=== PATIENT | female | born 1985 | race Caucasian/White ===

== ENCOUNTER 2020-01-04 07:59 | Outpatient (REF) | payer OTHER, SELFPAY ==
[2020-01-04 12:41] LABS: Chol HDL Ratio 4.35 mg/dL (0.0-4.40); Cholesterol 200 mg/dL (0-200); Glucose 101 mg/dL (65-115); HDL Cholesterol 46 mg/dL (60-100); LDL Cholesterol Calculated 118 mg/dL (50-129); LDL HDL Ratio 2.57 RATIO (0.00-3.22); Triglycerides 178 mg/dL (0-150)
[2020-01-04 13:20] LABS: Estmated Average Glucose 126
== END 2020-01-04 08:00 | disposition home or self-care (01) ==
LOC: LAB 07:59
PROVIDERS: Family Provider Family Medicine; PCP Family Medicine; Visit Provider Dermatology
DX: Z01.89 Encounter for other specified special examinations (principal)
CPT/HCPCS: 80061; 82947; 83036

== ENCOUNTER → 2020-03-12 15:54 | Outpatient (BNVA) | payer OTHER, SELFPAY | PROVIDERS: Family Provider Family Medicine; PCP Family Medicine; Referring Provider Surgery; Visit Provider Nurse Practitioner Women's Health | DX: Z01.419 Encounter for gynecological examination (general) (routine) without abnormal findings (principal); L68.0 Hirsutism; Z11.3 Encounter for screening for infections with a predominantly sexual mode of transmission; R10.30 Lower abdominal pain, unspecified | CPT/HCPCS: 87491; 87591; 87661; 88175 ==

== ENCOUNTER → 2020-11-23 16:27 | Outpatient (BNVA) | payer OTHER, SELFPAY | PROVIDERS: PCP Family Medicine; Visit Provider Nurse Practitioner Family | DX: M25.571 Pain in right ankle and joints of right foot (principal) | CPT/HCPCS: 73610 ==

== ENCOUNTER 2021-02-15 19:08 | Emergency (ER) | payer OTHER, SELFPAY ==
[2021-02-15 19:12] VITALS: BP 127/84; PULSE 133; RESP 22; TEMP 37.9; O2SAT 94; BMI 40.3
--- NOTE | 2021-02-15 21:22 | ED_ITS ---
HPI - Fever General: Chief Complaint: Fever Stated Complaint: SOB /Weakness/fever/Sore Throat Time Seen by Provider: 02/15/21 21:21 History of Present Illness: HPI Narrative: Patient is a 35-year-old female comes to the ED with fever and upper respiratory symptoms. Patient says symptoms started today. She says she woke up with nasal congestion and drainage and a sinus headache. She also complaining of a sore throat. Patient says she is taken to 1000 mg doses of Tylenol today. Her last dose of Tylenol was at 6 PM tonight. She is also complaining of having some right flank pain that started today as well. She says the pain comes in her lower back/right flank comes and goes. She denies any history of flank pain or kidney stones. Patient also says she took some Mucinex to help with her nasal congestion today as well. Denies any chest pain, emesis, bladder or bowel symptoms. She does endorse some nausea. Denies any known COVID-19 contacts. Associated symptoms: Reports flank pain (right flank pain), nasal congestion and nausea; Deny abdominal pain, chills, chest pain, diarrhea, dysuria, headache(s) or vomiting Review of Systems Const: Reports: fever(s); Denies: chills or fatigue Eyes: Denies: change in vision or eye discomfort ENMT: Reports: throat pain, nasal discharge and nasal congestion; Denies: odynophagia Card: Denies: chest pain, palpitations, edema, swelling of feet/ankles, dyspnea on exertion or orthopnea Resp: Denies: dyspnea, productive cough or non-productive cough GI: Reports: nausea; Denies: abdominal pain, vomiting, diarrhea, constipation or hematochezia : Reports: flank pain (right flank pain); Denies: dysuria or hematuria Musc: Denies: neck pain, back pain or extremity swelling Skin/Breast: Denies: rash or new lesions Neuro: Denies: headache(s), numbness in extremities or weakness in extremities PFSH ED PFSH: Medical History Anxiety Arthritis delivery delivered 2005 Patel Diabetes pre-diabetes GERD (gastroesophageal reflux disease) Hypertension Surgical History H/O section (~2005) 2006 Patel History of salpingectomy (~2018) Bilateral--- sterilization Hx of colonoscopy 2010 polyps removed Family History Grandmother Diabetes Chronic kidney disease (CKD) Father Diabetes Hypertension Bleeding disorder Mother Lung disease Denies family history of Cancer Stroke Social History Smoking and tobacco status: former smoker Alcohol intake: never Physical Exam Const: COMMON NORMALS: no acute distress, patient oriented x3, healthy appearing and alert GENERAL APPEARANCE: cooperative and comfortable NUTRITIONAL APPEARANCE: obese HENMT: COMMON NORMALS: normocephalic HEAD & SCALP: normocephalic FACE & SINUS: no sinus tenderness MOUTH: Normal oral and palatal mucosa present THROAT: posterior oropharynx normal, uvula midline and abnormal tonsil right erythema, exudates and hypertrophy 3+ Eye: COMMON NORMALS: Equal, round and reactive pupils present PUPIL: Yes Equal, round and reactive pupils present Neck/C-Spine: COMMON NORMALS: supple GENERAL: Yes normal visual inspection Resp: COMMON NORMALS: normal respiratory effort, No retractions, No use of accessory muscles and clear to auscultation bilaterally AUSCULTATION: clear to auscultation bilaterally Cardio: COMMON NORMALS: regular rate, regular rhythm, S1 normal heart sound present, S2 normal heart sound present, No gallops present (Cardio), No clicks present (Cardio), No murmurs present (Cardio) and Peripheral pulses 2+ throughout RATE: regular rate RHYTHM: regular rhythm HEART SOUNDS: S1 normal heart sound present and S2 normal heart sound present PERIPHERAL PULSES: Peripheral pulses 2+ throughout GI: COMMON NORMALS: Normal to inspection, nondistended, normoactive bowel sounds present, Soft to palpation, non-tender and no masses PALPATION: Yes Soft to palpation : COMMON NORMALS: Yes no CVA tenderness BLADDER/KIDNEY EXAM: Yes no CVA tenderness Back/Pelvis: COMMON NORMALS: no CVA tenderness Extremity: COMMON NORMALS: normal to inspection Neuro: COMMON NORMALS: patient oriented x3 and moves all extremities SENSORIUM/ORIENTATION: Yes alert Skin: GENERAL SKIN EXAM: dry skin Course Vital Signs: Vital signs: Vital Signs Temperature 99.4 F 02/15/21 23:39 Pulse Rate 112 H 02/15/21 23:39 Respiratory Rate 17 02/15/21 23:39 Blood Pressure 120/87 02/15/21 23:39 Pulse Oximetry 95 02/15/21 23:39 MDM - Fever MDM Narrative: Medical decision making narrative: Patient is a 35-year-old female who comes to the ED with fever and upper respiratory symptoms and right flank pain. Exam shows a healthy patient in no acute distress or pain. Lungs are clear to auscultation bilaterally. CBC, CMP and UA were unremarkable. Chest x-ray shows no acute findings. CT of the abdomen showed no acute findings or kidney stones. Influenza negative, Covid negative and strep negative. Patient received IV fluids, Zofran and Tylenol and symptoms improved. Patient diagnosed with upper respiratory infection likely viral. She was told to follow-up with her PCP in 7 to 10 days for reevaluation. Return to ED precautions given. Patient understood and agree with plan. Lab Data: Attestation: I reviewed the patient's lab results. Labs: Lab Results 02/15/21 02/15/21 02/15/21 Range/Units 21:43 21:43 21:43 WBC 10.0 (4.0-10.0) 10^3/ uL RBC 4.95 (4.1-5.3) 10^6/u L Hgb 13.7 (11.5-15.3) g/dL Hct 41.2 (37.0-47.0) % MCV 83.2 (81-99) fL MCH 27.7 L (28.0-34.0) pg MCHC 33.3 (30.0-36.0) g/dL RDW 12.6 (12.1-15.1) % Plt Count 267 (130-400) 10^3/c mm MPV 8.4 (7.4-10.4) fL Neut % (Auto) 80.5 % Lymph % (Auto) 13.6 % Hale % (Auto) 5.0 % Eos % (Auto) 0.3 % Baso % (Auto) 0.3 % Neut # (Auto) 8.03 H (1.8-7.7) 10^3/u L Lymph # (Auto) 1.4 (0.8-4.8) 10^3/u L Hale # (Auto) 0.5 (0.2-0.9) 10^3/u L Eos # (Auto) 0.0 (0.0-0.8) 10^3/u L Baso # (Auto) 0.0 (0.0-0.1) 10^3/u L Nucleated RBC % (a uto) 0 % Nucleated RBCs # 0.0 /100WBC Sodium 134 L (136-145) mmol/L Potassium 3.6 (3.5-5.1) mmol/L Chloride 98 (98-107) mmol/L Carbon Dioxide 24 (22-29) mmol/L Anion Gap 15.6 (5-19) BUN 11 (6-20) mg/dL Creatinine 0.6 (0.5-0.9) mg/dL GFR Calculation 113.8 (90-130) mL/min Glucose 106 (65-115) mg/dL Calculated Osmolal ity 278 L (285-295) mOsm/k g Calcium 8.8 (8.5-10.5) mg/dL Total Bilirubin 0.5 (0.15-1.2) mg/dL AST 16 (0-32) U/L ALT 23 (0-33) U/L Alkaline Phosphata se 66 (35-105) IU/L Total Protein 7.1 (6.6-8.7) g/dL Albumin 4.1 (3.5-5.2) g/dL Globulin 3.0 (1.3-4.6) g/dL HCG, Qual Negative (Negative) Urine Color (Yellow) Urine Appearance (CLEAR) Urine pH (5-7) Ur Specific Gravit y (1.005-1.030) Urine Protein (Negative) Urine Glucose (UA) (Normal) Urine Ketones (Negative) Urine Blood (Negative) Urine Nitrate (Negative) Urine Bilirubin (Negative) Urine Urobilinogen (Negative) mg/dL Ur Leukocyte Taisha ase (Negative) Urine RBC (0-2) /hpf Urine WBC (0-5) /hpf Ur Squamous Epith Cells (0-5) /hpf Amorphous Sediment Urine Bacteria (NONE) /hpf Influenza Type A A g (Negative) Influenza Type B A g (Negative) SARS-CoV-2 Ag (Rap id) (Negative) Group A Strep Rapi d (Negative) 02/15/21 02/15/21 02/15/21 Range/Units 22:19 22:19 22:19 WBC (4.0-10.0) 10^3/ uL RBC (4.1-5.3) 10^6/u L Hgb (11.5-15.3) g/dL Hct (37.0-47.0) % MCV (81-99) fL MCH (28.0-34.0) pg MCHC (30.0-36.0) g/dL RDW (12.1-15.1) % Plt Count (130-400) 10^3/c mm MPV (7.4-10.4) fL Neut % (Auto) % Lymph % (Auto) % Hale % (Auto) % Eos % (Auto) % Baso % (Auto) % Neut # (Auto) (1.8-7.7) 10^3/u L Lymph # (Auto) (0.8-4.8) 10^3/u L Hale # (Auto) (0.2-0.9) 10^3/u L Eos # (Auto) (0.0-0.8) 10^3/u L Baso # (Auto) (0.0-0.1) 10^3/u L Nucleated RBC % (a uto) % Nucleated RBCs # /100WBC Sodium (136-145) mmol/L Potassium (3.5-5.1) mmol/L Chloride (98-107) mmol/L Carbon Dioxide (22-29) mmol/L Anion Gap (5-19) BUN (6-20) mg/dL Creatinine (0.5-0.9) mg/dL GFR Calculation (90-130) mL/min Glucose (65-115) mg/dL Calculated Osmolal ity (285-295) mOsm/k g Calcium (8.5-10.5) mg/dL Total Bilirubin (0.15-1.2) mg/dL AST (0-32) U/L ALT (0-33) U/L Alkaline Phosphata se (35-105) IU/L Total Protein (6.6-8.7) g/dL Albumin (3.5-5.2) g/dL Globulin (1.3-4.6) g/dL HCG, Qual (Negative) Urine Color Colorless (Yellow) Urine Appearance Clear (CLEAR) Urine pH 5 (5-7) Ur Specific Gravit y 1.010 (1.005-1.030) Urine Protein Neg (Negative) Urine Glucose (UA) Norm (Normal) Urine Ketones Negative (Negative) Urine Blood Trace H (Negative) Urine Nitrate Negative (Negative) Urine Bilirubin Neg (Negative) Urine Urobilinogen Norm (Negative) mg/dL Ur Leukocyte Taisha ase Negative (Negative) Urine RBC 0-4 H (0-2) /hpf Urine WBC Rare (0-5) /hpf Ur Squamous Epith Cells 5-10 H (0-5) /hpf Amorphous Sediment Not Reportable Urine Bacteria Trace (NONE) /hpf Influenza Type A A g Negative (Negative) Influenza Type B A g Negative (Negative) SARS-CoV-2 Ag (Rap id) (Negative) Group A Strep Rapi d Negative (Negative) 02/15/21 Range/Units 22:19 WBC (4.0-10.0) 10^3/ uL RBC (4.1-5.3) 10^6/u L Hgb (11.5-15.3) g/dL Hct (37.0-47.0) % MCV (81-99) fL MCH (28.0-34.0) pg MCHC (30.0-36.0) g/dL RDW (12.1-15.1) % Plt Count (130-400) 10^3/c mm MPV (7.4-10.4) fL Neut % (Auto) % Lymph % (Auto) % Hale % (Auto) % Eos % (Auto) % Baso % (Auto) % Neut # (Auto) (1.8-7.7) 10^3/u L Lymph # (Auto) (0.8-4.8) 10^3/u L Hale # (Auto) (0.2-0.9) 10^3/u L Eos # (Auto) (0.0-0.8) 10^3/u L Baso # (Auto) (0.0-0.1) 10^3/u L Nucleated RBC % (a uto) % Nucleated RBCs # /100WBC Sodium (136-145) mmol/L Potassium (3.5-5.1) mmol/L Chloride (98-107) mmol/L Carbon Dioxide (22-29) mmol/L Anion Gap (5-19) BUN (6-20) mg/dL Creatinine (0.5-0.9) mg/dL GFR Calculation (90-130) mL/min Glucose (65-115) mg/dL Calculated Osmolal ity (285-295) mOsm/k g Calcium (8.5-10.5) mg/dL Total Bilirubin (0.15-1.2) mg/dL AST (0-32) U/L ALT (0-33) U/L Alkaline Phosphata se (35-105) IU/L Total Protein (6.6-8.7) g/dL Albumin (3.5-5.2) g/dL Globulin (1.3-4.6) g/dL HCG, Qual (Negative) Urine Color (Yellow) Urine Appearance (CLEAR) Urine pH (5-7) Ur Specific Gravit y (1.005-1.030) Urine Protein (Negative) Urine Glucose (UA) (Normal) Urine Ketones (Negative) Urine Blood (Negative) Urine Nitrate (Negative) Urine Bilirubin (Negative) Urine Urobilinogen (Negative) mg/dL Ur Leukocyte Taisha ase (Negative) Urine RBC (0-2) /hpf Urine WBC (0-5) /hpf Ur Squamous Epith Cells (0-5) /hpf Amorphous Sediment Urine Bacteria (NONE) /hpf Influenza Type A A g (Negative) Influenza Type B A g (Negative) SARS-CoV-2 Ag (Rap id) Negative (Negative) Group A Strep Rapi d (Negative) Imaging Data^: CXR: Attestation: I personally reviewed and interpreted this imaging study as follows: My impression: Chest x-ray?no acute findings. CT Abd/Pel: Attestation: I personally reviewed and interpreted this imaging study as follows: Radiologist's impression: [facility] [address] [place] [address] CT Scan Report Signed Patient: Montserrat Odom Unit #: [id number] : 1985 Age/Sex: 35 / F ADM Date: 02/15/21 Loc: ER Room/Bed: Attending Dr: Ordering Provider/Ordering MD: Miguel Perez Date of Service: 02/15/21 Procedure(s): CT kidney stone 74970 Accession Number(s): [id number] Report Number: [id number] PROCEDURE INFORMATION: Exam: CT Abdomen And Pelvis Without Contrast Exam date and time: 02/15/2021 9:51 PM Age: 35 years old Clinical indication: Abdominal pain; Right; Prior surgery; Surgery date: 6+ months; Surgery type: B-salpingectomy; Patient HX: C/O intermittent R flank pain; Additional info: Right flank pain TECHNIQUE: Imaging protocol: Computed tomography of the abdomen and pelvis without contrast. Total images: 373 Radiation optimization: All CT scans at this facility use at least one of these dose optimization techniques: automated exposure control; mA and/or kV adjustment per patient size (includes targeted exams where dose is matched to clinical indication); or iterative reconstruction. COMPARISON: CT abdomen pelvis w con* [id number] 07/21/2014 1:27 AM RADIATION DOSE METRICS: Total DLP (mGy-cm): 1973.23 FINDINGS: Lungs: Limited assessment of the lung bases fails to reveal evidence for active cardiopulmonary process. Liver: Marked advanced diffuse fatty infiltration of the liver with hepatomegaly. Gallbladder and bile ducts: Normal. No calcified stones. No ductal dilation. Pancreas: Pancreas unremarkable. No visible pancreatic ductal ectasia. Spleen: Splenomegaly. Adrenal glands: Right adrenal adenoma that measures 24 mm x 17 mm x 23 mm. Left adrenal gland unremarkable. Kidneys and ureters: No hydronephrosis or perinephric fluid. No visible nephrolithiasis or ureterolithiasis. Stomach and bowel: Assessment of the hollow viscus fails to reveal evidence of active or acute pathology. Nonobstructed bowel pattern. No visible acute diverticulitis. No visible adynamic or reactive ileus. Appendix: The appendix is visualized and appears noninflamed. Intraperitoneal space: No visible evidence of mesenteric lymphadenitis or active mesenteritis/panniculitis. No visible pneumoperitoneum or intraperitoneal ascites. Vasculature: The abdominal aorta is nonaneurysmal. Lymph nodes: No current visible evidence of active mesenteric or retroperitoneal lymphadenopathy. Urinary bladder: Unremarkable as visualized. Reproductive: Unremarkable as visualized. Bones/joints: No visible active or acute osseous pathology. Soft tissues: Unremarkable. Other findings: Marked obesity. CT/CT kidney stone [id number] IMPRESSION: 1. Currently no visible evidence of acute abdominal or pelvic pathologic process. 2. Right adrenal adenoma that measures 24 mm x 17 mm x 23 mm. COMMENTS: Consistent with the [place] [employer]'s Incidental Findings Committee white paper (J Am Johnna Radiol 2017): For any incidental adrenal lesion greater than 1 cm but less than 4 cm classified in this report as benign, likely benign, or containing fat (including classification as an adenoma or myelolipoma), no follow-up imaging is recommended per consensus recommendations based on imaging criteria. Further lab evaluation could be pursued if warranted based on clinical findings. Radiation Dose CTDIVOL = (mGy): DLP = 1973.23 (mGy-cm) Dictated By: Kashif Moctezuma Signed By: Kashif Moctezuma Signed Date/Time: 02/15/212224 DD/ 24 Discharge Plan Discharge Patient Disposition: Home Clinical Impression: Upper respiratory infection Qualifiers: URI type: unspecified viral URI Qualified Code(s): J06.9 - Acute upper respiratory infection, unspecified Condition: Stable Prescriptions: No Action lisinopril-hydrochlorothiazide 20-12.5 mg tablet 1 tab PO DAILY RF: 0 potassium chloride 10 mEq capsule, extended release 10 meq PO DAILY RF: 0 buspirone 15 mg tablet 15 mg PO BID RF: 0 hydrochlorothiazide 25 mg tablet 25 mg PO DAILY RF: 0 meloxicam 15 mg tablet 15 mg PO DAILY RF: 0 montelukast [Singulair] 10 mg tablet 10 mg PO DAILY RF: 0 magnesium 250 mg tablet 250 mg PO DAILY RF: 0 senna 8.6 mg capsule 17.2 mg PO DAILY PRNRF: 0 omeprazole 20 mg tablet,delayed release (DR/EC) 20 mg PO DAILY RF: 0 escitalopram oxalate [Lexapro] 10 mg tablet 10 mg PO DAILY RF: 0 hydroxyzine HCl 25 mg tablet 25 mg PO Q6H PRNRF: 0 norgestimate-ethinyl estradiol [Sprintec (28)] 0.25-35 mg-mcg tablet 1 tab PO QDAY Qty: 84 RF: 3 Discharge Orders: Discharge ED (Routine); Ordered 02/15/21 Ordered By: Miguel Perez Referrals: Bruce Euceda MD [Primary Care Provider] - Discharge Diet: Regular Discharge Activity: Resume usual activity Patient Instructions: Upper Respiratory Infection (ED), Viral Syndrome (ED) Activity Restrictions/Additional Instructions: Follow-up with medical provider as directed in 7 to 10 days for reevaluation. Continue taking all home medications as prescribed. Take Tylenol for any fevers or pain. Drink plenty of fluids and stay hydrated. Return to the ER or your medical provider if condition worsens. Please read and understand discharge instructions. If any questions, please ask. Stand Alone Forms: Work/School Release Coding Level of Care Code ED Insulation Cupola Operator for Asif Fwpawan Exam Comprehensive
--- NOTE | 2021-02-15 21:34 | XR_ITS ---
WS: [id number] PORTABLE CHEST HISTORY: fever, URI symptoms COMPARISON: 08/13/2016 Lungs are clear and well expanded. No pleural effusion or pneumothorax. Cardiac size: Normal. Mediastinum/Aorta: Normal mediastinum. No osseous abnormality seen. XR/XR chest 1V portable [id number] IMPRESSION: Unremarkable portable chest.
--- NOTE | 2021-02-15 21:34 | CTR_ITS ---
PROCEDURE INFORMATION: Exam: CT Abdomen And Pelvis Without Contrast Exam date and time: 02/15/2021 9:51 PM Age: 35 years old Clinical indication: Abdominal pain; Right; Prior surgery; Surgery date: 6+ months; Surgery type: B-salpingectomy; Patient HX: C/O intermittent R flank pain; Additional info: Right flank pain TECHNIQUE: Imaging protocol: Computed tomography of the abdomen and pelvis without contrast. Total images: 373 Radiation optimization: All CT scans at this facility use at least one of these dose optimization techniques: automated exposure control; mA and/or kV adjustment per patient size (includes targeted exams where dose is matched to clinical indication); or iterative reconstruction. COMPARISON: CT abdomen pelvis w con* [id number] 07/21/2014 1:27 AM RADIATION DOSE METRICS: Total DLP (mGy-cm): 1973.23 FINDINGS: Lungs: Limited assessment of the lung bases fails to reveal evidence for active cardiopulmonary process. Liver: Marked advanced diffuse fatty infiltration of the liver with hepatomegaly. Gallbladder and bile ducts: Normal. No calcified stones. No ductal dilation. Pancreas: Pancreas unremarkable. No visible pancreatic ductal ectasia. Spleen: Splenomegaly. Adrenal glands: Right adrenal adenoma that measures 24 mm x 17 mm x 23 mm. Left adrenal gland unremarkable. Kidneys and ureters: No hydronephrosis or perinephric fluid. No visible nephrolithiasis or ureterolithiasis. Stomach and bowel: Assessment of the hollow viscus fails to reveal evidence of active or acute pathology. Nonobstructed bowel pattern. No visible acute diverticulitis. No visible adynamic or reactive ileus. Appendix: The appendix is visualized and appears noninflamed. Intraperitoneal space: No visible evidence of mesenteric lymphadenitis or active mesenteritis/panniculitis. No visible pneumoperitoneum or intraperitoneal ascites. Vasculature: The abdominal aorta is nonaneurysmal. Lymph nodes: No current visible evidence of active mesenteric or retroperitoneal lymphadenopathy. Urinary bladder: Unremarkable as visualized. Reproductive: Unremarkable as visualized. Bones/joints: No visible active or acute osseous pathology. Soft tissues: Unremarkable. Other findings: Marked obesity. CT/CT kidney stone [id number] IMPRESSION: 1. Currently no visible evidence of acute abdominal or pelvic pathologic process. 2. Right adrenal adenoma that measures 24 mm x 17 mm x 23 mm. COMMENTS: Consistent with the [employer] [place] [employer]'s Incidental Findings Committee white paper (J Am Johnna Radiol 2017): For any incidental adrenal lesion greater than 1 cm but less than 4 cm classified in this report as benign, likely benign, or containing fat (including classification as an adenoma or myelolipoma), no follow-up imaging is recommended per consensus recommendations based on imaging criteria. Further lab evaluation could be pursued if warranted based on clinical findings. Radiation Dose CTDIVOL = (mGy): DLP = 1973.23 (mGy-cm)
[2021-02-15 21:48] VITALS: BP 120/87; PULSE 114; RESP 17; O2SAT 96
[2021-02-15 21:49] LABS: Basophils % 0.3 %; Eosinophils % 0.3 %; Hematocrit 41.2 % (37.0-47.0); Hemoglobin 13.7 g/dL (11.5-15.3); Lymphocytes # 1.4 10^3/uL (0.8-4.8); Lymphocytes % 13.6 %; Mean Corpuscular HGB Conc 33.3 g/dL (30.0-36.0); Mean Corpuscular Hemoglobin 27.7 pg (28.0-34.0); Mean Corpuscular Volume 83.2 fL (81-99); Mean Platelet Volume 8.4 fL (7.4-10.4); Monocytes # 0.5 10^3/uL (0.2-0.9); Neutrophils # 8.03 10^3/uL (1.8-7.7); Neutrophils % 80.5 %; Nucleated Red Blood Cells % 0 %; Platelet Count 267 10^3/cmm (130-400); Red Blood Count 4.95 10^6/uL (4.1-5.3); Red Cell Distribution Width 12.6 % (12.1-15.1)
[2021-02-15 22:00] VITALS: PULSE 102; RESP 17; O2SAT 96
[2021-02-15] MEDS: acetaminophen 500 mg Tablet PO (22:14)
[2021-02-15 22:15] LABS: HCG, Serum Qual Negative (Negative)
[2021-02-15 22:16] LABS: Alanine Aminotransferase 23 U/L (0-33); Albumin Level 4.1 g/dL (3.5-5.2); Alkaline Phosphatase 66 IU/L (35-105); Anion Gap 15.6 (5-19); Aspartate Amino Transferase 16 U/L (0-32); Blood Urea Nitrogen 11 mg/dL (6-20); Calcium 8.8 mg/dL (8.5-10.5); Carbon Dioxide 24 mmol/L (22-29); Chloride 98 mmol/L (98-107); Glomerular Filtration Rate 113.8 mL/min (90-130); Glucose 106 mg/dL (65-115); Osmolality Calculated 278 mOsm/kg (285-295); Potassium 3.6 mmol/L (3.5-5.1); Sodium 134 mmol/L (136-145); Total Bilirubin 0.5 mg/dL (0.15-1.2); Total Protein 7.1 g/dL (6.6-8.7)
[2021-02-15] MEDS: sodium chloride 0.9% 1,000 ML 999 ML IV (22:22)
[2021-02-15 22:58] LABS: Add Urine Culture? No; Bacteria Urine TRACE /hpf; Bilirubin Urine Neg (Negative); Blood Urine Trace (Negative); Glucose Urine UA Norm (Normal); Ketones Urine Negative (Negative); Leukocyte Esterase Urine Negative (Negative); Nitrate Urine Negative (Negative); Protein Urine Neg (Negative); RBC Urine 0-4 /hpf (0-2); Urine Appearance Clear (CLEAR); Urine Color Colorless (Yellow); Urobilinogen Urine Norm (Negative); WBC Urine RARE /hpf (0-5); pH Urine 5 (5-7)
[2021-02-15 23:02] LABS: Rapid Strep A Test Negative (Negative)
[2021-02-15 23:16] LABS: SARS Covid-2 Antigen Negative (Negative)
[2021-02-15 23:19] LABS: Influenza A by IFA Negative (Negative); Influenza B by IFA Negative (Negative)
[2021-02-15 23:39] VITALS: BP 120/87; PULSE 112; RESP 17; TEMP 37.4; O2SAT 95
== END 2021-02-15 23:41 | disposition home or self-care (01) ==
PROVIDERS: Emergency Provider Physician Assistant; PCP Family Medicine
DX: J06.9 Acute upper respiratory infection, unspecified (principal); E11.9 Type 2 diabetes mellitus without complications; I10 Essential (primary) hypertension; Z87.891 Personal history of nicotine dependence
CPT/HCPCS: 71045; 74176; 80053; 81001; 84703; 85025; 87081; 87426; 87804; 87880; 96360; 99284; J7030

== ENCOUNTER 2021-03-26 20:00 | Outpatient (CLI) | payer OTHER, SELFPAY | END 2021-03-26 20:01 | disposition home or self-care (01) | LOC: SLEEP 03-27 09:09 | PROVIDERS: PCP Family Medicine; Visit Provider Family Medicine | DX: G47.33 Obstructive sleep apnea (adult) (pediatric) (principal) | CPT/HCPCS: 95810 ==

== ENCOUNTER → 2021-07-03 12:28 | Outpatient (BNVA) | payer OTHER, SELFPAY | PROVIDERS: PCP Family Medicine; Visit Provider Urology | DX: K80.20 Calculus of gallbladder without cholecystitis without obstruction (principal); Z20.822 Contact with and (suspected) exposure to COVID-19 | CPT/HCPCS: 87635 ==

== ENCOUNTER 2021-07-08 06:01 | Day surgery (SDC) | payer OTHER, SELFPAY ==
[2021-07-07 11:19] VITALS: BMI 41.6
[2021-07-08] VITALS (11 sets, daily range): BP systolic 93–136; BP diastolic 66–89; PULSE 80–101; RESP 16–20; TEMP 36.1–36.9; O2SAT 92–100
[2021-07-08] MEDS: sodium chloride 0.9% 1,000 ML 30 ML IV (06:45)
[2021-07-08] MEDS: scopolamine 1.5 Patch 1 PATCH TRANSDERMA (06:45)
[2021-07-08] MEDS: diphenhydrAMINE 50 mg/mL SDV 1mL 12.5 MG IVP (06:51)
--- NOTE | 2021-07-08 06:56 | W.PM.OPSFHP ---
Same Day Surgery H&P Indication for Procedure/HPI DATE OF PROCEDURE: July 08, 2021 CHIEF COMPLAINT/INDICATIONFOR SURGICAL PROCEDURE: lap rosibel PREOP DIAGNOSIS: Cholelithiasis PLANNED PROCEDRUE: Operation Date: 07/08/21 07:00 Proposed Procedures p Laparoscopic Cholecystectomy 05324 k80.20(Not Applicable) - John Batista MD Medications/Allergies* Home Medications Medication Instructions Recorded Confirmed Type hydrochlorothiazide 25 mg tablet 25 mg PO DAILY 01/31/20 07/08/21 History magnesium 250 mg tablet 250 mg PO DAILY 01/31/20 07/08/21 History meloxicam 15 mg tablet 15 mg PO DAILY 01/31/20 07/08/21 History montelukast 10 mg tablet 10 mg PO DAILY 01/31/20 07/08/21 History omeprazole 20 mg tablet,delayed 10 mg PO DAILY tab 01/31/20 07/08/21 History release escitalopram oxalate 10 mg tablet 20 mg PO DAILY 03/12/20 07/08/21 History hydroxyzine HCl 25 mg tablet 25 mg PO Q6H PRN tab 03/12/20 07/08/21 History potassium chloride 10 mEq 10 meq PO DAILY 11/23/20 07/08/21 History capsule,extended release Allergies/Adverse Reactions Allergy/AdvReac Type Severity Reaction Status Date / Time lisinopril Allergy ADR-Cough Verified 07/07/21 11:16 Current Medications: Generic Name Dose Route Start Last Admin Trade Name Freq PRN Reason Stop Dose Admin Sodium Chloride 1,000 mls @ 30 mls/hr 07/08/21 06:00 07/08/21 06:45 Sodium Chloride 0.9% IV 07/09/21 05:59 30 mls/hr .Q24H RUBY Administration Pertinent History/Comorbid Conditions* Medical History (Updated 06/08/21 @ 13:13 by John Batista MD) Anxiety Arthritis Diabetes pre-diabetes GERD (gastroesophageal reflux disease) Hypertension Surgical History (Updated 03/12/20 @ 13:38 by Latrice Richard APN, WHKARINA) H/O section (~2005) 2006 Patel History of salpingectomy (~2018) Bilateral--- sterilization Hx of colonoscopy 2009 polyps removed Family History (Updated 01/31/20 @ 11:55 by Sylvia Harris) Diabetes Grandmother Father Chronic kidney disease (CKD) Grandmother Bleeding disorder Father Lung disease Mother Hypertension Father Denies family history of Cancer Stroke Social History Smoking and tobacco status: former smoker Alcohol intake: never Pertinent Exam Findings alert, oriented x 3, regular rate & rhythm and operative site marked Recommendations Surgery/Procedure today Coding Level of Care Code Acute Commercial Hvac Service Technician for Asif You
--- NOTE | 2021-07-08 06:58 | ANES.PREANE2 ---
Pre-Anesthetic Assessment Pre-Anesthetic Assessment: Height/Weight: Height 1.68 m Weight 117.027 kg Temp Pulse Resp BP Pulse Ox 97.0 F L 86 18 136/89 97 07/08/21 06:12 07/08/21 06:12 07/08/21 06:12 07/08/21 06:12 07/08/21 06:12 Preop Diagnosis: Cholelithiasis Proposed Procedure: Operation Date: 07/08/21 07:00 Proposed Procedures p Laparoscopic Cholecystectomy 92972 k80.20(Not Applicable) - John Batista MD Was Beta Anoop taken within 24 hours: N/A Was Clonidine taken within 24 hours: N/A Social: Social History: No alcohol and No tobacco Exam: Pre-Anes Outpt Exam: alert, oriented x 3, clear to auscultation bilaterally and regular rate & rhythm Airway: Submandibular: WNL Cervical ROM: WNL MP: 2 Dentition: Full Pulmonary: Pulmonary: Asthma GI: GI: GERD Metabolic: Metabolic: Morbid obesity Anesthetic Plan: ASA status: 2 Anesthesia: General Risk of > 500 ml blood loss (7ml/kg in children): No Meds/Allergies Current Medications: Current Medications Generic Name Dose Route Start Last Admin Trade Name Freq PRN Reason Stop Dose Admin Sodium Chloride 1,000 mls @ 30 ml s/hr 07/08/21 06:00 07/08/21 06:45 Sodium Chloride 0.9% IV 07/09/21 05:59 30 mls/hr .Q24H RUBY Administration PFSH Anesthesia PFSH: Medical History (Updated 06/08/21 @ 13:13 by John Batista MD) Anxiety Arthritis Diabetes pre-diabetes GERD (gastroesophageal reflux disease) Hypertension Surgical History H/O section (~2005) 2006 Patel History of salpingectomy (~2018) Bilateral--- sterilization Hx of colonoscopy 2010 polyps removed Family History Grandmother Diabetes Chronic kidney disease (CKD) Father Diabetes Hypertension Bleeding disorder Mother Lung disease Denies family history of Cancer Stroke Social History Smoking and tobacco status: former smoker Alcohol intake: never Female Reproductive History: Date of last menstrual period: 06/07/21 Data Anesthesia Cardiac Studies: No Data to Display
--- NOTE | 2021-07-08 07:36 | PM.OP ---
Operative Report Date of procedure: July 08, 2021 Pre-op Diagnosis: Cholelithiasis Post-op diagnosis: same Procedure Done: Laparoscopic cholecystectomy Specimens removed/disposition: Gallbladder Surgeon: John Batista Anesthesia: General Condition: stable Disposition: PACU Procedure: The patient was taken to the operating room and was intubated under general anesthesia. After the antibiotic had been administered, the abdomen was prepped and draped in a sterile manner. Using a #15 blade, a 1 centimeter infraumbilical curvilinear incision was made and using an open Viji technique the peritoneal cavity was entered. A 10 millimeter port was placed and 15 millimeters of pneumoperitoneum was created. A 10 millimeter, 30 degrees scope was then introduced. Three 5 millimeter ports were placed in the epigastric, midclavicular and the anterior axillary line two fingerbreadths below the costal margin on the right side under the direct visualization. Ratcheted forceps were introduced into the lateral most port and was used to retract the fundus of the gallbladder cephalad and using forceps the infundibulum of the gallbladder was retracted laterally. Using L-hook cautery the peritoneum overlying the Calot's triangle was opened medially and laterally until the cystic duct and the cystic artery were skeletonized. Dissection was carried along the body of the gallbladder and after ensuring critical view of safety, 4 clips applied on the cystic duct and 3 clips applied on the cystic artery and cut leaving, 3 clips on the remaining portion of the duct and 2 clips on the remaining portion of the artery. The rest of the gallbladder was dissected off the liver using L-hook cautery. There was no bleeding or bile leaking noted from the gallbladder fossa and the clips appeared to be in place. An EndoCatch bag was introduced to remove the gallbladder. All the ports were removed under direct visualization and there was no bleeding noted from the port sites. The fascia of the umbilicus was closed using [id number] 0 Vicryl sutures and the subcutaneous tissue was approximated using 3-0 Vicryl sutures. The skin at all four ports were closed using 4-0 Monocryl and Dermabond. A total of 10 millimeters of 0.5% Marcaine was infiltrated around the port sites. The patient was stable throughout the procedure.
[2021-07-08] MEDS: metoclopramide 5 mg/mL SDV 2 mL 10 MG IVP ×2 (07:51→08:06)
[2021-07-08] MEDS: fentaNYL 50 mcg/mL INJ 2mL IVP ×2 (07:52→07:57)
[2021-07-08] MEDS: ondansetron 2 mg/ML SDV 2 mL 4 MG IVP (07:56)
[2021-07-08] MEDS: dexamethasone 4 mg/mL INJ IVP (08:15)
[2021-07-08] MEDS: HYDROcodone-acetaminophen 5-325 mg Tablet 1 TAB PO (09:07)
--- NOTE | 2021-07-08 15:42 | ANE.PACU2 ---
Inpatient post-anesthesia follow up: Airway intact: Yes Vital signs: Temperature 98.4 F Pulse Rate 81 Respiratory Rate 18 Blood Pressure 116/76 Pulse Oximetry 93 Oxygen Delivery Me thod Room Air Oxygen Flow Rate 8 Fraction of Inspir ed Oxygen Hydration adequate: Yes Nausea and vomiting: No Pain level: 2 Mental status: Baseline
== END 2021-07-08 09:20 | disposition home or self-care (01) ==
PROVIDERS: PCP Family Medicine; Visit Provider Surgery
PROC: 0FT44ZZ Resection of Gallbladder, Percutaneous Endoscopic Approach (ICD-10-PCS; CPT 47562; principal; 2021-07-08 07:00)
DX: K80.10 Calculus of gallbladder with chronic cholecystitis without obstruction (principal); J45.909 Unspecified asthma, uncomplicated; E66.01 Morbid (severe) obesity due to excess calories; Z68.41 Body mass index [BMI] 40.0-44.9, adult; F41.9 Anxiety disorder, unspecified; M19.90 Unspecified osteoarthritis, unspecified site; E11.9 Type 2 diabetes mellitus without complications; I10 Essential (primary) hypertension; K21.9 Gastro-esophageal reflux disease without esophagitis; Z87.891 Personal history of nicotine dependence
CPT/HCPCS: 47562; 88304; 96374; J1100; J1200; J2405; J2704; J2710; J2765; J3010; J3490; J7030

== ENCOUNTER 2021-11-11 16:14 | Emergency (ER) | payer OTHER, SELFPAY ==
[2021-11-11 16:18] VITALS: BP 133/85; PULSE 81; RESP 18; TEMP 36.6; O2SAT 97; BMI 41.1
--- NOTE | 2021-11-11 17:14 | XRR_ITS ---
PROCEDURE INFORMATION: Exam: XR Left Knee Exam date and time: 11/11/2021 5:14 PM Age: 36 years old Clinical indication: Injury or trauma; Fall; Work related; Blunt trauma; Injury details: PT fell at work landing on right arm and left knee. Pain in RT arm and wrist and left knee TECHNIQUE: Imaging protocol: XR Left knee. Views: 3 views. COMPARISON: No relevant prior studies available. FINDINGS: Bones/joints: Osseous structures are intact. Negative for fracture. Joint spaces are preserved. Soft tissues: Normal. XR/XR knee LT 3V* [id number] IMPRESSION: No acute findings.
--- NOTE | 2021-11-11 17:14 | XRR_ITS ---
PROCEDURE INFORMATION: Exam: XR Right Wrist Exam date and time: 11/11/2021 5:14 PM Age: 36 years old Clinical indication: Injury or trauma; Fall; Work related; Blunt trauma (contusions or hematomas); Injury details: PT fell at work landing on right arm and left knee. Pain in RT arm and wrist and left knee; Additional info: Fall injury TECHNIQUE: Imaging protocol: XR Right wrist. Views: 3 or more views. COMPARISON: No relevant prior studies available. FINDINGS: Bones/joints: Visualized osseous structures are intact. Negative for fracture. Joint spaces are preserved. Soft tissues: Normal. XR/XR wrist RT min 3V* [id number] IMPRESSION: No acute findings.
--- NOTE | 2021-11-11 17:14 | XRR_ITS ---
PROCEDURE INFORMATION: Exam: XR Right Shoulder Exam date and time: 11/11/2021 5:14 PM Age: 36 years old Clinical indication: Injury or trauma; Fall; Work related; Blunt trauma (contusions or hematomas); Shoulder; Injury details: PT fell at work landing on right arm and left knee. Pain in RT arm and wrist and left knee TECHNIQUE: Imaging protocol: XR Right shoulder. Views: 2 or more views. COMPARISON: CR XR chest 1V portable [id number] 02/15/2021 10:19 PM FINDINGS: Bones/joints: Negative for fracture or dislocation. Joint spaces are preserved. Soft tissues: Normal. XR/XR shoulder RT min 2V* [id number] IMPRESSION: No acute findings.
--- NOTE | 2021-11-11 17:15 | W.ED.FALL ---
HPI - Fall General: Chief Complaint: Fall Stated Complaint: R WRIST INJURY/L KNEE INJURY/FALL RELATED Time Seen by Provider: 11/11/21 17:13 History of Present Illness: HPI Narrative: We have a 36-year-old female who fell at work today. Patient reports she tripped over a cord causing her to come down on her left knee and catching her style with an outstretched right hand. Patient reports pain in the right wrist, right shoulder, and left knee. Patient was able to ambulate on the leg without difficulty. Patient reports some anterior tenderness in the left knee. Patient reports tingling in her hand with wrist tenderness. Patient appears well. Patient appears in no acute distress. Review of Systems General: Reports: 10 or more systems reviewed and unremarkable except in HPI and below Musc: Reports: other (Right wrist injury, right shoulder injury, left knee injury.) PFSH ED PFSH: Medical History Anxiety Arthritis Diabetes pre-diabetes GERD (gastroesophageal reflux disease) Hypertension Surgical History H/O section (~2005) 2006 Patel History of salpingectomy (~2018) Bilateral--- sterilization Hx of colonoscopy 2010 polyps removed Status post laparoscopic cholecystectomy (07/08/21) Family History Grandmother Diabetes Chronic kidney disease (CKD) Father Diabetes Hypertension Bleeding disorder Mother Lung disease Denies family history of Cancer Stroke Social History Alcohol intake: never Female Reproductive History: Date of last menstrual period: 06/07/21 Physical Exam Const: COMMON NORMALS: no acute distress and patient oriented x3 GENERAL APPEARANCE: cooperative HENMT: COMMON NORMALS: normocephalic and Normal external nose present HEAD & SCALP: normal to inspection and normocephalic NOSE: Normal external nose present Eye: GENERAL EYE: appearance normal, both eyes and all related structures Neck/C-Spine: COMMON NORMALS: full ROM Chest: COMMONS NORMALS: normal inspection of the chest Resp: COMMON NORMALS: normal respiratory effort EFFORT & INSPECTION: Yes able to speak in complete sentences Cardio: COMMON NORMALS: regular rate and regular rhythm RATE: regular rate RHYTHM: regular rhythm GI: COMMON NORMALS: non-tender Back/Pelvis: COMMON NORMALS: thoracic and lumbar spine normal to inspection Extremity: NARRATIVE EXTREMITY EXAM: Wrist tenderness is noted on palpation of the radial and ulnar area. Minimal swelling and no ecchymosis is noted. Normal range of motion of the right shoulder is noted. Some tension is noted in the trapezius muscle. Mild ecchymosis is noted to the left anterior knee in the patellar area. Normal range of motion of the knee is noted patient is able to ambulate with minimal to no difficulty. Neuro: COMMON NORMALS: patient oriented x3 and moves all extremities Psych: COMMON NORMALS: mental status grossly normal and cooperative Skin: COMMON NORMALS: no rashes or lesions noted GENERAL SKIN EXAM: no rashes or lesions noted Course Vital Signs: Vital signs: Vital Signs Temperature 97.9 F 11/11/21 16:18 Pulse Rate 81 11/11/21 16:18 Respiratory Rate 17 11/11/21 17:22 Blood Pressure 133/85 11/11/21 16:18 Pulse Oximetry 97 11/11/21 16:18 MDM - Fall MDM Narrative: Medical decision making narrative: Patient comes in for evaluation after falling at work today. On exam patient has some tenderness in her left anterior knee, some tenderness in her right wrist with some mild swelling, and minimal to no difficulty with the right shoulder. Differential diagnosis includes fracture of the wrist, patella fracture, contusions, sprain, strain. X-rays of the right shoulder, right wrist, and left knee indicated no abnormalities. Reviewed examination with patient with recommendations for treatment and follow-up. Patient reported understanding. Discharge Plan Discharge Patient Disposition: Home Clinical Impression: Fall Qualifiers: Encounter type: initial encounter Qualified Code(s): W19.XXXA - Unspecified fall, initial encounter Contusion of knee Qualifiers: Encounter type: initial encounter Laterality: left Qualified Code(s): S80.02XA - Contusion of left knee, initial encounter Right wrist sprain Qualifiers: Encounter type: initial encounter Qualified Code(s): S63.501A - Unspecified sprain of right wrist, initial encounter Acute shoulder pain Qualifiers: Laterality: right Qualified Code(s): M25.511 - Pain in right shoulder Condition: Stable Prescriptions: New tizanidine 4 mg tablet 4 mg PO Q8H PRN (Reason: muscle spasticity) Qty: 10 RF: 0 No Action potassium chloride 10 mEq capsule, extended release 10 meq PO DAILY RF: 0 hydrochlorothiazide 25 mg tablet 25 mg PO DAILY RF: 0 meloxicam 15 mg tablet 15 mg PO DAILY RF: 0 montelukast [Singulair] 10 mg tablet 10 mg PO DAILY RF: 0 magnesium 250 mg tablet 250 mg PO DAILY RF: 0 omeprazole 20 mg tablet,delayed release (DR/EC) 10 mg PO DAILY RF: 0 escitalopram oxalate [Lexapro] 10 mg tablet 20 mg PO DAILY RF: 0 hydroxyzine HCl 25 mg tablet 25 mg PO Q6H PRN (Reason: ALLERGIES) RF: 0 Colace 100 mg capsule 100 mg PO BID Qty: 30 RF: 0 Discharge Orders: Discharge ED (Routine); Ordered 11/11/21 Ordered By: Shawn Washburn Referrals: Bruce Euceda MD [Primary Care Provider] - Discharge Diet: Usual diet Discharge Activity: Increase activity as tolerated Patient Instructions: Musculoskeletal Pain (ED) Activity Restrictions/Additional Instructions: Activity as tolerated. Gentle stretching and range of motion exercises. Use acetaminophen and ibuprofen for acute pain. Do not use ibuprofen or naproxen with meloxicam. Use ice packs for further pain relief. You may also use muscle rub to the area of pain for further discomfort. Wear elastic bandage to the wrist for comfort and support. Follow-up with primary care in 1 week for persistent symptoms or new concerns. Return to ER for new concerns Stand Alone Forms: Work/School Release Coding Level of Care Code ED [employer] Support [employer] for [employer]
[2021-11-11 17:22] VITALS: RESP 17
[2021-11-11 19:00] VITALS: BP 133/85; PULSE 81; RESP 17; O2SAT 97
== END 2021-11-11 19:01 | disposition home or self-care (01) ==
PROVIDERS: Emergency Provider Nurse Practitioner Family; PCP Family Medicine
DX: S80.02XA Contusion of left knee, initial encounter (principal); S63.501A Unspecified sprain of right wrist, initial encounter; M25.511 Pain in right shoulder; E11.9 Type 2 diabetes mellitus without complications; I10 Essential (primary) hypertension; W18.09XA Striking against other object with subsequent fall, initial encounter; Y99.0 Civilian activity done for income or pay
CPT/HCPCS: 73030; 73110; 73562; 99283

== ENCOUNTER 2021-12-17 11:19 | Outpatient (CLI) | payer OTHER, SELFPAY ==
--- NOTE | 2021-12-17 11:24 | XR_ITS ---
WS: [id number] INDICATION: Left knee pain. Patella pain. TECHNIQUE: 3 views of the patella. FINDINGS: Patella is normal in appearance. No acute fractures. Mild anterior soft tissue edema. Small suprapatellar effusion. No acute fractures. XR/XR patella LT 1-2V [id number] IMPRESSION: Soft tissue edema. No acute fractures.
== END 2021-12-17 11:20 | disposition home or self-care (01) ==
PROVIDERS: PCP Family Medicine; Visit Provider Family Medicine
DX: S80.02XA Contusion of left knee, initial encounter (principal); X58.XXXA Exposure to other specified factors, initial encounter; R60.0 Localized edema
CPT/HCPCS: 73560

== ENCOUNTER → 2021-12-28 00:01 | Outpatient (BNVA) | payer OTHER, SELFPAY | PROVIDERS: PCP Family Medicine; Visit Provider Family Medicine | DX: Z20.822 Contact with and (suspected) exposure to COVID-19 (principal) | CPT/HCPCS: 87635 ==

== ENCOUNTER 2022-05-12 07:12 | Emergency (ER) | payer OTHER, SELFPAY ==
[2022-05-12 07:27] VITALS: BP 146/94; PULSE 83; RESP 16; TEMP 36.9; O2SAT 99; BMI 41.9
--- NOTE | 2022-05-12 09:30 | W.ED.ABDPA2 ---
Documented by User: MONTANA Osborne 05/12/22 12:01 HPI - Abdominal Pain General: Chief Complaint: Abdominal Pain Stated Complaint: low abd pain Time Seen by Provider: 05/12/22 07:14 Source: patient Mode of arrival: ambulatory Limitations: no limitations History of Present Illness: Patient is a nice 37-year-old female who presents to ED today with a complaint of an episode of acute onset significant lower pelvic pain that began at roughly 7 AM this morning. Patient states she has had several of these similar episodes previously. She has been told by her PCP that they are somehow related to her bowels. Patient states she has done a lot of dietary and exercise changes recently and states she is having normal regular bowel movements. She states this morning she woke up with some mild discomfort to her left lower pelvis and states while in the shower pain immediately became significant rating it at an 8/10. She states symptoms lasted approximately 10 to 15 minutes and then subsided back down to roughly a 4/10. She states she was able to have a bowel movement at this time and it did seem to help with her discomfort. She also reports previous episodes being improved with bowel movements. She reports a previous history of ovarian cysts over 15 years ago. She is not having any vaginal bleeding or vaginal discharge. No nausea, vomiting, diarrhea. No urinary symptoms. No fevers. Upon arrival she states her pain has improved. MD elicited complaint: abdominal pain and other (pelvic pain) Onset (ago): hour(s) Pain Consistency: now resolved (not fully resolved but much improved ) Location: Pelvis Severity: severe (improved upon arrival to ED) Radiation: none Migration to: no migration Exacerbating factors: nothing Relieving factors: bowel movement Associated Symptoms: Reports no associated symptoms; Denies change in bowel habits, chills, diarrhea, dysuria, fever(s), nausea and vomiting Related Data: Date of Last Menstrual Period: 06/07/21 Patient : No Review of Systems Const: Denies: fever(s), chills, body aches, fatigue or malaise Card: Denies: chest pain Resp: Denies: dyspnea GI: Reports: abdominal pain; Denies: nausea, vomiting, diarrhea or change in bowel habits : Reports: pelvic pain; Denies: flank pain, dysuria, vaginal odor, vaginal bleeding or vaginal discharge Musc: Denies: neck pain, back pain, extremity pain or joint pain Skin/Breast: Denies: rash Neuro: Denies: headache(s) or dizziness PFSH ED PFSH: Medical History Anxiety Arthritis Diabetes pre-diabetes GERD (gastroesophageal reflux disease) Hypertension Surgical History H/O section (~2005) 2005 Patel History of salpingectomy (~2018) Bilateral--- sterilization Hx of colonoscopy 2009 polyps removed Status post laparoscopic cholecystectomy (07/08/21) Family History Grandmother Diabetes Chronic kidney disease (CKD) Father Diabetes Hypertension Bleeding disorder Mother Lung disease Denies family history of Cancer Stroke Social History Alcohol intake: never Female Reproductive History: Date of last menstrual period: 06/07/21 Physical Exam Const: COMMON NORMALS: no acute distress, patient oriented x3, no limitations and alert GENERAL APPEARANCE: cooperative ORIENTATION/CONSCIOUSNESS: Yes awake, Yes oriented to person, Yes oriented to place and Yes oriented to time Resp: COMMON NORMALS: normal respiratory effort and clear to auscultation bilaterally AUSCULTATION: clear to auscultation bilaterally Cardio: COMMON NORMALS: regular rate and regular rhythm RATE: regular rate RHYTHM: regular rhythm GI: COMMON NORMALS: Normal to inspection, nondistended, normoactive bowel sounds present, Soft to palpation, No hepatosplenomegaly present and no masses INSPECTION: Yes normal to inspection AUSCULTATION: Yes normoactive bowel sounds PALPATION: Yes Soft to palpation, Yes Tenderness to palpation present (GI) (L lower pelvis), No Guarding due to palpation present (GI), No Rigid due to palpation and Yes No hepatosplenomegaly present : COMMON NORMALS: Yes no CVA tenderness BLADDER/KIDNEY EXAM: Yes no CVA tenderness Back/Pelvis: COMMON NORMALS: no CVA tenderness Extremity: GENERAL: Yes normal exam except as noted Neuro: COMMON NORMALS: patient oriented x3, moves all extremities, no focal motor deficits, no sensory deficits noted and gait normal SENSORIUM/ORIENTATION: Yes alert, Yes oriented to person, Yes oriented to place and Yes oriented to time Skin: COMMON NORMALS: no rashes or lesions noted GENERAL SKIN EXAM: no rashes or lesions noted Course Vital Signs: Vital signs: Vital Signs Temperature 98.4 F 05/12/22 07:27 Pulse Rate 78 05/12/22 11:09 Respiratory Rate 14 05/12/22 11:09 Blood Pressure 129/86 05/12/22 11:09 Pulse Oximetry 97 05/12/22 11:09 MDM - Abdominal Pain Medical Decision Making Patient's vital signs are stable. Her blood work and UA are unremarkable. She does have ruptured hemorrhagic left ovarian cysts on US which fits patient's clinical history. This most likely is the etiology for her previous episodes of discomfort as well. We will place referral for the women's health clinic for further evaluation/possible treatment. Patient declines pain medications. She feels comfortable going home at this time. Lab Data : 05/12/22 09:30 05/12/22 09:30 Labs/Radiology: Radiology Impressions Transvaginal US 05/12/22 09:39 IMPRESSION: 1. Hemorrhagic cysts within the LEFT ovary are small. There is adjacent free fluid within the LEFT adnexa which is probably due to a collapsing or ruptured cyst. 2. Normal endometrium. 3. RIGHT ovary not identified. Laboratory Results WBC 5.3 10^3/uL (4.0-10.0) 05/12/22 09:30 RBC 4.88 10^6/uL (4.1-5.3) 05/12/22 09:30 Hgb 13.9 g/dL (11.5-15.3) 05/12/22 09:30 Hct 43.2 % (37.0-47.0) 05/12/22 09:30 MCV 88.5 fl (81-99) 05/12/22 09:30 MCH 28.5 pg (28.0-34.0) 05/12/22 09:30 MCHC 32.2 g/dL (30.0-36.0) 05/12/22 09:30 RDW 12.4 % (12.1-15.1) 05/12/22 09:30 Plt Count 259 10^3/cmm (130-400) 05/12/22 09:30 MPV 8.4 fL (7.4-10.4) 05/12/22 09:30 Neut % (Auto) 55.4 % 05/12/22 09:30 Lymph % (Auto) 34.9 % 05/12/22 09:30 [place] % (Auto) 7.2 % 05/12/22 09:30 Eos % (Auto) 2.1 % 05/12/22 09:30 Baso % (Auto) 0.2 % 05/12/22 09:30 Neut # (Auto) 2.94 10^3/uL (1.8-7.7) 05/12/22 09:30 Lymph # (Auto) 1.9 10^3/uL (0.8-4.8) 05/12/22 09:30 [place] # (Auto) 0.4 10^3/uL (0.2-0.9) 05/12/22 09:30 Eos # (Auto) 0.1 10^3/uL (0.0-0.8) 05/12/22 09:30 Baso # (Auto) 0.0 10^3/uL (0.0-0.1) 05/12/22 09:30 Nucleated RBC % (auto) 0 % 05/12/22 09:30 Nucleated RBCs # 0.0 /100WBC 05/12/22 09:30 Sodium 138 mmol/L (136-145) 05/12/22 09:30 Potassium 4.4 mmol/L (3.5-5.1) 05/12/22 09:30 Chloride 102 mmol/L (98-107) 05/12/22 09:30 Carbon Dioxide 27 mmol/L (22-29) 05/12/22 09:30 Anion Gap 13.4 (5-19) 05/12/22 09:30 BUN 11 mg/dL (6-20) 05/12/22 09:30 Creatinine 0.6 mg/dL (0.5-0.9) 05/12/22 09:30 GFR Calculation 112.5 mL/min (90-130) 05/12/22 09:30 Glucose 99 mg/dL (65-115) 05/12/22 09:30 Calculated Osmolality 285 mOsm/kg (285-295) 05/12/22 09:30 Calcium 9.3 mg/dL (8.5-10.5) 05/12/22 09:30 Total Bilirubin 0.4 mg/dL (0.15-1.2) 05/12/22 09:30 AST 30 U/L (0-32) 05/12/22 09:30 ALT 45 U/L (0-33) H 05/12/22 09:30 Alkaline Phosphatase 54 IU/L (35-105) 05/12/22 09:30 Total Protein 7.1 g/dL (6.6-8.7) 05/12/22 09:30 Albumin 4.4 g/dL (3.5-5.2) 05/12/22 09:30 Globulin 2.7 g/dL (1.3-4.6) 05/12/22 09:30 HCG, Qual Negative (Negative) 05/12/22 09:30 Urine Color Yellow (Yellow) 05/12/22 09:30 Urine Appearance Clear (CLEAR) 05/12/22 09:30 Urine pH 7 (5-7) 05/12/22 09:30 Ur Specific [place] 1.005 (1.005-1.030) 05/12/22 09:30 Urine Protein Neg (Negative) 05/12/22 09:30 Urine Glucose (UA) Norm (Normal) 05/12/22 09:30 Urine Ketones Negative (Negative) 05/12/22 09:30 Urine Blood Neg (Negative) 05/12/22 09:30 Urine Nitrate Negative (Negative) 05/12/22 09:30 Urine Bilirubin Neg (Negative) 05/12/22 09:30 Urine Urobilinogen Norm mg/dL (Negative) 05/12/22 09:30 Ur Leukocyte Esterase Negative (Negative) 05/12/22 09:30 Discharge Plan Discharge Patient Disposition: Home Clinical Impression: Hemorrhagic cyst of left ovary Condition: Stable Prescriptions: No Action potassium chloride 10 mEq capsule, extended release 10 meq PO DAILY 0RF azelastine 137 mcg (0.1 %) aerosol,spray 2 spray intranasal BID Qty: 30 0RF Rx Instructions: administer into each nostril hydrochlorothiazide 25 mg tablet 25 mg PO DAILY 0RF meloxicam 15 mg tablet 15 mg PO DAILY 0RF montelukast [Singulair] 10 mg tablet 10 mg PO DAILY 0RF magnesium 250 mg tablet 250 mg PO DAILY 0RF escitalopram oxalate [Lexapro] 10 mg tablet 20 mg PO DAILY 0RF Colace 100 mg capsule 100 mg PO BID Qty: 30 0RF Discharge Orders: Discharge ED (Routine); Ordered 05/12/22 Ordered By: Marilou Herron Patient Instructions: Ovarian Cyst (ED) Activity Restrictions/Additional Instructions: As we discussed I have placed a referral to the women's health clinic for further evaluation of your left ovarian cysts. You need to return to the emergency department for worsening or uncontrollable abdominal/pelvic pain or any other concerns you may have. I hope you begin to feel better soon. Stand Alone Forms: Work/School Release Coding Level of Care Code ED Software Qa System Specialist for Chg Fwd Exam Comprehensive Documented by User: Doroteo Mckeon, 05/12/22 17:26 HPI - Abdominal Pain General: Chief Complaint: Abdominal Pain Stated Complaint: low abd pain Time Seen by Provider: 05/12/22 07:14 PFSH ED PFSH: Medical History Anxiety Arthritis Diabetes pre-diabetes GERD (gastroesophageal reflux disease) Hypertension Surgical History H/O section (~2005) 2006 Patel History of salpingectomy (~2018) Bilateral--- sterilization Hx of colonoscopy 2009 polyps removed Status post laparoscopic cholecystectomy (07/08/21) Family History Grandmother Diabetes Chronic kidney disease (CKD) Father Diabetes Hypertension Bleeding disorder Mother Lung disease Denies family history of Cancer Stroke Social History Alcohol intake: never Course Vital Signs: Vital signs: Vital Signs Temperature 98.4 F 05/12/22 07:27 Pulse Rate 78 05/12/22 11:09 Respiratory Rate 14 05/12/22 11:09 Blood Pressure 129/86 05/12/22 11:09 Pulse Oximetry 97 05/12/22 11:09 MDM - Abdominal Pain Medical Decision Making Patient's vital signs are stable. Her blood work and UA are unremarkable. She does have ruptured hemorrhagic left ovarian cysts on US which fits patient's clinical history. This most likely is the etiology for her previous episodes of discomfort as well. We will place referral for the women's health clinic for further evaluation/possible treatment. Patient declines pain medications. She feels comfortable going home at this time. Chart reviewed and patient discussed with midlevel. Agree with assessment and plan. Medical Records I reviewed the patient's medical records. Lab Data I reviewed the patient's lab results. : 05/12/22 09:30 05/12/22 09:30 Labs/Radiology: Radiology Impressions Transvaginal US 05/12/22 09:39 IMPRESSION: 1. Hemorrhagic cysts within the LEFT ovary are small. There is adjacent free fluid within the LEFT adnexa which is probably due to a collapsing or ruptured cyst. 2. Normal endometrium. 3. RIGHT ovary not identified. Laboratory Results WBC 5.3 10^3/uL (4.0-10.0) 05/12/22:30 RBC 4.88 10^6/uL (4.1-5.3) 05/12/22 09:30 Hgb 13.9 g/dL (11.5-15.3) 05/12/22:30 Hct 43.2 % (37.0-47.0) 05/12/22:30 MCV 88.5 fl (81-99) 05/12/22 09:30 MCH 28.5 pg (28.0-34.0) 05/12/22:30 MCHC 32.2 g/dL (30.0-36.0) 05/12/22:30 RDW 12.4 % (12.1-15.1) 05/12/22 09:30 Plt Count 259 10^3/cmm (130-400) 05/12/22:30 MPV 8.4 fL (7.4-10.4) 05/12/22:30 Neut % (Auto) 55.4 % 05/12/22 09:30 Lymph % (Auto) 34.9 % 05/12/22:30 [place] % (Auto) 7.2 % 05/12/22:30 Eos % (Auto) 2.1 % 06/15/22 09:30 Baso % (Auto) 0.2 % 05/12/22 09:30 Neut # (Auto) 2.94 10^3/uL (1.8-7.7) 05/12/22 09:30 Lymph # (Auto) 1.9 10^3/uL (0.8-4.8) 05/12/22 09:30 [place] # (Auto) 0.4 10^3/uL (0.2-0.9) 05/12/22 09:30 Eos # (Auto) 0.1 10^3/uL (0.0-0.8) 05/12/22 09:30 Baso # (Auto) 0.0 10^3/uL (0.0-0.1) 05/12/22 09:30 Nucleated RBC % (auto) 0 % 05/12/22 09:30 Nucleated RBCs # 0.0 /100WBC 05/12/22 09:30 Sodium 138 mmol/L (136-145) 05/12/22 09:30 Potassium 4.4 mmol/L (3.5-5.1) 05/12/22 09:30 Chloride 102 mmol/L (98-107) 05/12/22 09:30 Carbon Dioxide 27 mmol/L (22-29) 05/12/22 09:30 Anion Gap 13.4 (5-19) 05/12/22 09:30 BUN 11 mg/dL (6-20) 05/12/22 09:30 Creatinine 0.6 mg/dL (0.5-0.9) 05/12/22 09:30 GFR Calculation 112.5 mL/min (90-130) 05/12/22 09:30 Glucose 99 mg/dL (65-115) 05/12/22 09:30 Calculated Osmolality 285 mOsm/kg (285-295) 05/12/22 09:30 Calcium 9.3 mg/dL (8.5-10.5) 05/12/22 09:30 Total Bilirubin 0.4 mg/dL (0.15-1.2) 05/12/22 09:30 AST 30 U/L (0-32) 05/12/22 09:30 ALT 45 U/L (0-33) H 05/12/22 09:30 Alkaline Phosphatase 54 IU/L (35-105) 05/12/22 09:30 Total Protein 7.1 g/dL (6.6-8.7) 05/12/22 09:30 Albumin 4.4 g/dL (3.5-5.2) 05/12/22 09:30 Globulin 2.7 g/dL (1.3-4.6) 05/12/22 09:30 HCG, Qual Negative (Negative) 05/12/22 09:30 Urine Color Yellow (Yellow) 05/12/22 09:30 Urine Appearance Clear (CLEAR) 05/12/22 09:30 Urine pH 7 (5-7) 05/12/22 09:30 Ur Specific [place] 1.005 (1.005-1.030) 05/12/22 09:30 Urine Protein Neg (Negative) 05/12/22 09:30 Urine Glucose (UA) Norm (Normal) 05/12/22 09:30 Urine Ketones Negative (Negative) 05/12/22 09:30 Urine Blood Neg (Negative) 05/12/22 09:30 Urine Nitrate Negative (Negative) 05/12/22 09:30 Urine Bilirubin Neg (Negative) 05/12/22 09:30 Urine Urobilinogen Norm mg/dL (Negative) 05/12/22 09:30 Ur Leukocyte Esterase Negative (Negative) 05/12/22 09:30 Discharge Plan Discharge Patient Disposition: Home Clinical Impression: Hemorrhagic cyst of left ovary Condition: Stable Prescriptions: No Action potassium chloride 10 mEq capsule, extended release 10 meq PO DAILY 0RF azelastine 137 mcg (0.1 %) aerosol,spray 2 spray intranasal BID Qty: 30 0RF Rx Instructions: administer into each nostril hydrochlorothiazide 25 mg tablet 25 mg PO DAILY 0RF meloxicam 15 mg tablet 15 mg PO DAILY 0RF montelukast [Singulair] 10 mg tablet 10 mg PO DAILY 0RF magnesium 250 mg tablet 250 mg PO DAILY 0RF escitalopram oxalate [Lexapro] 10 mg tablet 20 mg PO DAILY 0RF Colace 100 mg capsule 100 mg PO BID Qty: 30 0RF Discharge Orders: Discharge ED (Routine); Ordered 05/12/22 Ordered By: Marilou Herron Patient Instructions: Ovarian Cyst (ED) Activity Restrictions/Additional Instructions: As we discussed I have placed a referral to the women's health clinic for further evaluation of your left ovarian cysts. You need to return to the emergency department for worsening or uncontrollable abdominal/pelvic pain or any other concerns you may have. I hope you begin to feel better soon. Stand Alone Forms: Work/School Release Coding Level of Care Code ED Software Qa System Specialist for Cesarg Fwd Exam Comprehensive
[2022-05-12 09:39] LABS: Basophils % 0.2 %; Eosinophils # 0.1 10^3/uL (0.0-0.8); Eosinophils % 2.1 %; Hematocrit 43.2 % (37.0-47.0); Hemoglobin 13.9 g/dL (11.5-15.3); Lymphocytes # 1.9 10^3/uL (0.8-4.8); Lymphocytes % 34.9 %; Mean Corpuscular HGB Conc 32.2 g/dL (30.0-36.0); Mean Corpuscular Hemoglobin 28.5 pg (28.0-34.0); Mean Corpuscular Volume 88.5 fl (81-99); Mean Platelet Volume 8.4 fL (7.4-10.4); Monocytes # 0.4 10^3/uL (0.2-0.9); Monocytes % 7.2 %; Neutrophils # 2.94 10^3/uL (1.8-7.7); Neutrophils % 55.4 %; Nucleated Red Blood Cells % 0 %; Platelet Count 259 10^3/cmm (130-400); Red Blood Count 4.88 10^6/uL (4.1-5.3); Red Cell Distribution Width 12.4 % (12.1-15.1); White Blood Count 5.3 10^3/uL (4.0-10.0)
--- NOTE | 2022-05-12 09:39 | US_ITS ---
WS: [id number] TRANSABDOMINAL PELVIC AND TRANSVAGINAL PELVIC ULTRASOUND HISTORY: L pelvic pain COMPARISON: 10/29/2009 Uterus: 10.0 cm x 4.6 cm x 5.0 cm. Mildly enlarged anteverted uterus. Mild heterogeneity. Small nabot hian cysts at the cervix. Endometrium: 1.1 cm. Normal. Normal vascularity. Right ovary: Not visualized. No adnexal mass. Left ovary: 5.5 cm x 2.2 cm x 4.8 cm. Hypoechoic nodule is probably a hemorrhagic cyst or collapsing corpus luteum measuring 1.6 x 1.7 x 1.9 cm. There is an additional more complex hemorrhagic cyst ravin uring 2.5 x 2.6 x 2.1 cm. Normal vascularity within the ovary. There is a small amount of adjacent fr ee fluid. Small amount of free fluid in the cul-de-sac. US/US transvaginal [id number] IMPRESSION: 1. Hemorrhagic cysts within the LEFT ovary are small. There is adjacent free f luid within the LEFT adnexa which is probably due to a collapsing or ruptured c yst. 2. Normal endometrium. 3. RIGHT ovary not identified.
[2022-05-12 09:40] LABS: Add Urine Microscopic? NO; Charge for UA Resulting for Rev
[2022-05-12 09:42] LABS: Urine Appearance Clear (CLEAR); Urine Color Yellow (Yellow)
[2022-05-12 09:43] LABS: Bilirubin Urine Neg (Negative); Blood Urine Neg (Negative); Glucose Urine UA Norm (Normal); Ketones Urine Negative (Negative); Leukocyte Esterase Urine Negative (Negative); Nitrate Urine Negative (Negative); Protein Urine Neg (Negative); Specific Gravity, Urine 1.005 (1.005-1.030); Urobilinogen Urine Norm (Negative); pH Urine 7 (5-7)
[2022-05-12 09:53] LABS: HCG, Serum Qual Negative (Negative)
[2022-05-12 10:03] LABS: Alanine Aminotransferase 45 U/L (0-33); Albumin Level 4.4 g/dL (3.5-5.2); Alkaline Phosphatase 54 IU/L (35-105); Anion Gap 13.4 (5-19); Aspartate Amino Transferase 30 U/L (0-32); Blood Urea Nitrogen 11 mg/dL (6-20); Calcium 9.3 mg/dL (8.5-10.5); Carbon Dioxide 27 mmol/L (22-29); Chloride 102 mmol/L (98-107); Globulin 2.7 g/dL (1.3-4.6); Glomerular Filtration Rate 112.5 mL/min (90-130); Glucose 99 mg/dL (65-115); Osmolality Calculated 285 mOsm/kg (285-295); Potassium 4.4 mmol/L (3.5-5.1); Sodium 138 mmol/L (136-145); Total Bilirubin 0.4 mg/dL (0.15-1.2); Total Protein 7.1 g/dL (6.6-8.7)
[2022-05-12 11:08] VITALS: BP 129/86; PULSE 78; RESP 14; O2SAT 97
[2022-05-12 11:09] VITALS: BP 129/86; PULSE 78; RESP 14; O2SAT 97
--- NOTE | 2022-05-12 15:35 | DCPLANNER ---
Addendum entered by Elisa Cole 06/17/22 16:39: hedis manager was sent the following messages regarding patients referral: Patient never responded so referral cancelled//JS On 05/19/22 @ 10:42 Valeria Holguin Wrote To Elisa Cole Unable to reach patient, letter mailed//JS On 05/18/22 @ 16:46 Valeria Holguin Wrote To [facility] Attempted to call patient again, left voicemail//JS On 05/13/22 @ 15:16 Bettina Mancini Wrote To [facility] Front [facility] Attempted to contact patient to get appt scheduled. Left vm. Original Note: hedis manager had message to schedule a follow up appointment for patient with [facility]. hedis manager sent patients information to the front office staff at [facility]. Patients information will be printed and reviewed. Clinic will call patient with appointment information.
== END 2022-05-12 11:10 | disposition home or self-care (01) ==
PROVIDERS: Emergency Provider Physician Assistant
DX: N83.202 Unspecified ovarian cyst, left side (principal)
CPT/HCPCS: 76830; 80053; 81003; 84703; 85025; 99283

== ENCOUNTER → 2023-07-31 16:45 | Outpatient (BNVA) | payer SELFPAY | PROVIDERS: Visit Provider Registered Nurse Neonatal Intensive Care | DX: R05.9 Cough, unspecified; Z20.822 Contact with and (suspected) exposure to COVID-19 | CPT/HCPCS: 87426 ==

== ENCOUNTER → 2023-09-10 18:46 | Outpatient (BNVA) | payer SELFPAY | PROVIDERS: Visit Provider Family Medicine | DX: R39.9 Unspecified symptoms and signs involving the genitourinary system (principal) | CPT/HCPCS: 81000 ==

== ENCOUNTER → 2024-02-20 07:26 | Outpatient (BNVA) | payer BC, SELFPAY | PROVIDERS: Visit Provider Podiatrist Foot & Ankle Surgery | DX: M72.2 Plantar fascial fibromatosis | CPT/HCPCS: 73630 ==

== ENCOUNTER 2024-09-13 19:06 | Emergency (ER) | payer BC, SELFPAY ==
[2024-09-13 19:13] VITALS: BP 190/107; PULSE 81; RESP 16; TEMP 36.7; O2SAT 97; BMI 45.1
[2024-09-13 20:21] VITALS: BP 149/91; PULSE 84; O2SAT 96
[2024-09-13 20:21] LABS: Bilirubin Urine Negative (Negative); Blood Urine Negative (Negative); Glucose Urine UA Negative (Normal); Ketones Urine Negative (Negative); Leukocyte Esterase Urine Negative (Negative); Nitrate Urine Negative (Negative); Protein Urine 2+ (Negative); Specific Gravity, Urine 1.021 (1.005-1.030); Urine Appearance Clear (CLEAR); Urine Color Yellow (Yellow); pH Urine 5.5 (5-7)
--- NOTE | 2024-09-13 20:23 | CTR_ITS ---
PROCEDURE INFORMATION: Exam: CT Abdomen And Pelvis Without Contrast Exam date and time: 09/13/2024 8:28 PM Age: 39 years old Clinical indication: Abdominal pain; Flank; Right; Additional info: Right flank pain TECHNIQUE: Imaging protocol: Computed tomography of the abdomen and pelvis without contrast. Radiation optimization: All CT scans at this facility use at least one of these dose optimization techniques: automated exposure control; mA and/or kV adjustment per patient size (includes targeted exams where dose is matched to clinical indication); or iterative reconstruction. COMPARISON: CT kidney stone [id number] 02/15/2021 10:12 PM RADIATION DOSE METRICS: Total DLP (mGy-cm): 1243.93 FINDINGS: Liver: Hepatomegaly. Mild steatosis. Gallbladder and biliary ducts: Cholecystectomy. Pancreas: Unremarkable. Spleen: Normal. No splenomegaly. Adrenal glands: Unchanged bilateral adrenal adenomas. Kidneys and ureters: There are 1 mm hyperdensities in the proximal, mid, and distal right ureter (series 3, images 133, 157, and 177) without perinephric fat stranding or hydroureteronephrosis. Stomach and bowel: Unremarkable. No mechanical obstruction. No mucosal thickening. Appendix: Unremarkable. Intraperitoneal space: No free air or free fluid. Vasculature: Unremarkable. Lymph nodes: Mild reactive mesenteric and retroperitoneal lymph nodes. Urinary bladder: Unremarkable. Reproductive: Unremarkable. Bones/joints: L1 vertebral body bone island. Soft tissues: Unremarkable. CT/CT kidney stone [id number] IMPRESSION: No obstructive nephrolithiasis, however there are 1 mm hyperdensities in the proximal, mid, and distal right ureter which may represent macerated partially calcified nonobstructive stones. COMMENTS: 1. Consistent with the [place] [employer]'s Incidental Findings Committee white paper (J Am Johnna Radiol 2017): Any incidental adrenal lesion less than 1 cm is likely benign. No follow-up imaging is recommended for these lesions per consensus recommendations based on imaging criteria. Further lab evaluation could be pursued if warranted based on clinical findings. 2. Consistent with the [place] [employer]'s Incidental Findings Committee white paper (J Am Johnna Radiol 2017): For any incidental adrenal lesion greater than or equal to 1 cm but less than or equal to 4 cm classified in this report as benign, likely benign, or containing fat (including classification as an adenoma or myelolipoma), no follow-up imaging is recommended per consensus recommendations based on imaging criteria. Further lab evaluation could be pursued if warranted based on clinical findings. 3. Consistent with the [place] [employer]'s Incidental Findings Committee white paper (J Am Johnna Radiol 2018): Any incidental renal lesion less than 1 cm or classified as too small to characterize, or any incidental cystic renal lesion characterized as simple-appearing, is likely benign. No follow-up imaging is recommended for these lesions per consensus recommendations based on imaging criteria.
[2024-09-13 20:26] LABS: Add Urine Microscopic? YES; Bacteria Urine Trace /hpf; Hyaline Casts Urine 0-4 /lpf; RBC Urine 0-2 /hpf (0-2); Squamous Epithelial Cell Urine 0-5 /hpf (0-5); WBC Urine 0-5 /hpf (0-5)
[2024-09-13 20:27] LABS: Basophils % 0.4 %; Eosinophils # 0.2 10^3/uL (0.0-0.8); Eosinophils % 2.8 %; Lymphocytes # 2.3 10^3/uL (0.8-4.8); Lymphocytes % 40.7 %; Mean Corpuscular HGB Conc 32.3 g/dL (30-55); Mean Corpuscular Hemoglobin 27.6 pg (27-33); Mean Corpuscular Volume 85.3 fl (85-98); Mean Platelet Volume 8.5 fL (7.4-10.4); Monocytes # 0.4 10^3/uL (0.2-0.9); Monocytes % 7.6 %; Neutrophils # 2.75 10^3/uL (1.8-7.7); Neutrophils % 48.3 %; Nucleated Red Blood Cells % 0 %; Platelet Count 271 10^3/cmm (157-399); Red Blood Count 5.04 10^6/uL (3.85-5.65); Red Cell Distribution Width 12.3 % (12.1-15.1); White Blood Count 5.68 10^3/uL (3.29-11.43)
--- NOTE | 2024-09-13 20:27 | ED_ITS ---
HPI - Abdominal Pain 2 General: Chief Complaint: Abdominal Pain Stated Complaint: right side pain, back pain Time Seen by Provider: 09/13/24 20:08 History of Present Illness: 39-year-old female comes in today with r ight upper quadrant pain radiating from the back to the right abdomen starting today. Patient has a history of gallbladder removal and states that the pain reminds her of her attacks when she had gallbladder colic. Patient appears nontoxic. Patient is not jaundiced. Patient appears in mild to moderate pain. Related Data Home Medications Medication Instructions Recorded Confirmed hydrochlorothiazide 25 mg tablet 25 mg PO DAILY 01/31/20 05/28/24 escitalopram oxalate 10 mg tablet 10 mg PO DAILY 10/21/23 05/28/24 meloxicam 15 mg tablet 15 mg PO DAILY 02/20/24 05/28/24 Previous Rx's Medication Instructions Recorded methylprednisolone 4 mg tablets in See Rx Instructions PO PER PKG DIR 05/28/24 a dose pack (Medrol (Marco Antonio)) #21 ea Allergies Allergy/AdvReac Type Severity Reaction Status Date / Time lisinopril Allergy ADR-Cough Verified 05/28/24 10:04 Review of Systems 2 General: Reports: 10 or more systems reviewed and unremarkable except in HPI and below PFSH ED 2 PFSH: Medical History Anxiety Arthritis Hypertension GERD (gastroesophageal reflux disease) Diabetes pre-diabetes Surgical History Status post laparoscopic cholecystectomy (07/08/21) H/O section (~2005) 2006 Patel History of salpingectomy (~2018) Bilateral--- sterilization Hx of colonoscopy 2010 polyps removed Family History Grandmother Diabetes Chronic kidney disease (CKD) Father Diabetes Hypertension Bleeding disorder Mother Lung disease Denies family history of Cancer Stroke Social History Smoking and tobacco/nicotine status: former use of tobacco/nicotine Alcohol intake: never Substance/Drug Use: never Physical Exam 2 Const: COMMON NORMALS: alert HENMT: COMMON NORMALS: normocephalic HEAD & SCALP: normocephalic Neck/C-Spine: COMMON NORMALS: full ROM Resp: COMMON NORMALS: normal respiratory effort Cardio: COMMON NORMALS: regular rate RATE: regular rate GI: COMMON NORMALS: Soft to palpation PALPATION: Yes Soft to palpation and Yes Tenderness to palpation present (GI) Details: RUQ : COMMON NORMALS: Yes no CVA tenderness BLADDER/KIDNEY EXAM: Yes no CVA tenderness Back/Pelvis: COMMON NORMALS: no CVA tenderness Extremity: COMMON NORMALS: full ROM Neuro: SENSORIUM/ORIENTATION: Yes alert Skin: COMMON NORMALS: turgor normal GENERAL SKIN EXAM: turgor normal Course 2 Vital Signs: Vital signs: Vital Signs Temperature 98.1 F 09/13/24 19:13 Pulse Rate 92 09/13/24 21:00 Respiratory Rate 16 09/13/24 19:13 Blood Pressure 129/97 09/13/24 21:00 Pulse Oximetry 93 09/13/24 21:00 Oxygen Delivery Me thod Room Air 09/13/24 21:00 MDM - Abdominal Pain Medical Decision Making 39-year-old female comes in today with abdominal colic like pain. Patient appears nontoxic. Patient does have some right upper quadrant tenderness to palpation. Vital signs notes some elevated blood pressure. Differential diagnosis includes pancreatitis, choledocholithiasis, renal colic, constipation, gastritis. CBC and CMP were unremarkable. Patient did have a bump in her lactate but without sign of infection probably is not indicative of anything except may be medication use. CT of the abdomen pelvis noted no signs of abscess or infection, patient did have a 1 mm nonobstructing stone in the ureter and some nephrolithiasis. Reviewed exam with patient recommendation for treatment and follow-up. Reassured patient that most likely the pain should be minimal and should pass the stone without difficulty. We will go ahead and place an follow-up appointment with urology. Patient was agreeable to plan. Lab Data 09/13/24 20:20 09/13/24 20:20 Labs/Radiology: Radiology Impressions Abdomen/Pelvis CT 09/13/24 20:23 IMPRESSION: No obstructive nephrolithiasis, however there are 1 mm hyperdensities in the proximal, mid, and distal right ureter which may represent macerated partially calcified nonobstructive stones. COMMENTS: 1. Consistent with the [employer]'s Incidental Findings Committee white paper (J Am Johnna Radiol 2017): Any incidental adrenal lesion less than 1 cm is likely benign. No follow-up imaging is recommended for these lesions per consensus recommendations based on imaging criteria. Further lab evaluation could be pursued if warranted based on clinical findings. 2. Consistent with the [employer]'s Incidental Findings Committee white paper (J Am Johnna Radiol 2017): For any incidental adrenal lesion greater than or equal to 1 cm but less than or equal to 4 cm classified in this report as benign, likely benign, or containing fat (including classification as an adenoma or myelolipoma), no follow-up imaging is recommended per consensus recommendations based on imaging criteria. Further lab evaluation could be pursued if warranted based on clinical findings. 3. Consistent with the [employer]'s Incidental Findings Committee white paper (J Am Johnna Radiol 2018): Any incidental renal lesion less than 1 cm or classified as too small to characterize, or any incidental cystic renal lesion characterized as simple-appearing, is likely benign. No follow-up imaging is recommended for these lesions per consensus recommendations based on imaging criteria. Laboratory Results WBC 5.68 10^3/uL (3.29-11.43) 09/13/24 20:20 RBC 5.04 10^6/uL (3.85-5.65) 09/13/24 20:20 Hgb 13.90 g/dL (11.27-16.99) 09/13/24 20:20 Hct 43.0 % (36-47) 09/13/24 20:20 MCV 85.3 fl (85-98) 09/13/24 20:20 MCH 27.6 pg (27-33) 09/13/24 20:20 MCHC 32.3 g/dL (30-55) 09/13/24 20:20 RDW 12.3 % (12.1-15.1) 09/13/24 20:20 Plt Count 271 10^3/cmm (157-399) 09/13/24 20:20 MPV 8.5 fL (7.4-10.4) 09/13/24 20:20 Neut % (Auto) 48.3 % 09/13/24 20:20 Lymph % (Auto) 40.7 % 09/13/24 20:20 [place] % (Auto) 7.6 % 09/13/24 20:20 Eos % (Auto) 2.8 % 09/13/24 20:20 Baso % (Auto) 0.4 % 09/13/24 20:20 Neut # (Auto) 2.75 10^3/uL (1.8-7.7) 09/13/24 20:20 Lymph # (Auto) 2.3 10^3/uL (0.8-4.8) 09/13/24 20:20 [place] # (Auto) 0.4 10^3/uL (0.2-0.9) 09/13/24 20:20 Eos # (Auto) 0.2 10^3/uL (0.0-0.8) 09/13/24 20:20 Baso # (Auto) 0.0 10^3/uL (0.0-0.1) 09/13/24 20:20 Nucleated RBC % (auto) 0 % 09/13/24 20:20 Nucleated RBCs # 0.0 /100WBC 09/13/24 20:20 Sodium 138 mmol/L (136-145) 09/13/24 20:20 Potassium 3.6 mmol/L (3.5-5.1) 09/13/24 20:20 Chloride 99 mmol/L (98-107) 09/13/24 20:20 Carbon Dioxide 26 mmol/L (22-29) 09/13/24 20:20 Anion Gap 16.6 (5-19) 09/13/24 20:20 BUN 12 mg/dL (6-20) 09/13/24 20:20 Creatinine 0.7 mg/dL (0.5-0.9) 09/13/24 20:20 GFR Calculation 93.2 mL/min (90-130) 09/13/24 20:20 Glucose 124 mg/dL (65-115) H 09/13/24 20:20 Calculated Osmolality 287 mOsm/kg (285-295) 09/13/24 20:20 Lactic Acid 3.2 mmol/L (0.5-2.2) H 09/13/24 20:20 Calcium 8.8 mg/dL (8.5-10.5) 09/13/24 20:20 Total Bilirubin 0.3 mg/dL (0.15-1.2) 09/13/24 20:20 AST 19 U/L (0-32) 09/13/24 20:20 ALT 29 U/L (0-33) 09/13/24 20:20 Alkaline Phosphatase 77 U/L (35-105) 09/13/24 20:20 Total Protein 6.4 g/dL (6.6-8.7) L 09/13/24 20:20 Albumin 4.1 g/dL (3.5-5.2) 09/13/24 20:20 Globulin 2.3 g/dL (1.3-4.6) 09/13/24 20:20 Lipase 46 U/L (13-60) 09/13/24 20:20 HCG, Qual Negative (Negative) 09/13/24 20:15 Urine Color Yellow (Yellow) 09/13/24 20:15 Urine Appearance Clear (CLEAR) 09/13/24 20:15 Urine pH 5.5 (5-7) 09/13/24 20:15 Ur Specific [place] 1.021 (1.005-1.030) 09/13/24 20:15 Urine Protein 2+ (Negative) A 09/13/24 20:15 Urine Glucose (UA) Negative (Normal) 09/13/24 20:15 Urine Ketones Negative (Negative) 09/13/24 20:15 Urine Blood Negative (Negative) 09/13/24 20:15 Urine Nitrate Negative (Negative) 09/13/24 20:15 Urine Bilirubin Negative (Negative) 09/13/24 20:15 Urine Urobilinogen 1.0 mg/dL (Negative) 09/13/24 20:15 Ur Leukocyte Esterase Negative (Negative) 09/13/24 20:15 Urine RBC 0-2 /hpf (0-2) 09/13/24 20:15 Urine WBC 0-5 /hpf (0-5) 09/13/24 20:15 Ur Squamous Epith Cells 0-5 /hpf (0-5) 09/13/24 20:15 Amorphous Sediment Not Reportable 09/13/24 20:15 Urine Bacteria Trace /hpf (NONE) 09/13/24 20:15 Hyaline Casts 0-4 /lpf H 09/13/24 20:15 All radiology interpretation(s) finalized by discharge Discharge Plan Discharge Patient Disposition: Home Clinical Impression: Renal colic on right side Condition: Stable Prescriptions: No Action hydrochlorothiazide 25 mg tablet 25 mg PO DAILY meloxicam 15 mg tablet 15 mg PO DAILY methylprednisolone [Medrol (Marco Antonio)] 4 mg tablets,dose pack See Rx Instructions PO PER PKG DIR Qty: 21 0RF Rx Instructions: PO PER PKG DIR escitalopram oxalate 10 mg tablet 10 mg PO DAILY Discharge Orders: Discharge ED (Routine); Ordered 09/13/24 Ordered By: Shawn Washburn Referrals: Bruce Euceda MD [Primary Care Provider] - Discharge Diet: Usual diet Discharge Activity: Increase activity as tolerated Patient Instructions: Kidney Stones (ED) Activity Restrictions/Additional Instructions: Continue with routine care. Activity as tolerated. Follow-up with primary care as needed. Case management will contact you about following up with a urologist. Return to ER for high fever, increased blood in the urine, or severe pain. Coding Level of Care Code ED Band Booker for Asif You
[2024-09-13 20:28] LABS: HCG Qualitative Urine. Negative (Negative)
[2024-09-13 21:00] VITALS: BP 129/97; PULSE 92; O2SAT 93
[2024-09-13 21:07] LABS: Alanine Aminotransferase 29 U/L (0-33); Albumin Level 4.1 g/dL (3.5-5.2); Alkaline Phosphatase 77 U/L (35-105); Anion Gap 16.6 (5-19); Aspartate Amino Transferase 19 U/L (0-32); Blood Urea Nitrogen 12 mg/dL (6-20); Calcium 8.8 mg/dL (8.5-10.5); Carbon Dioxide 26 mmol/L (22-29); Chloride 99 mmol/L (98-107); Creatinine Clr Calc Pharmacy 147.1414; Globulin 2.3 g/dL (1.3-4.6); Glomerular Filtration Rate 93.2 mL/min (90-130); Glucose 124 mg/dL (65-115); Lipase 46 U/L (13-60); Osmolality Calculated 287 mOsm/kg (285-295); Potassium 3.6 mmol/L (3.5-5.1); Sodium 138 mmol/L (136-145); Total Bilirubin 0.3 mg/dL (0.15-1.2); Total Protein 6.4 g/dL (6.6-8.7)
[2024-09-13 21:08] LABS: Lactic Sepsis W/Reflex 3.2 mmol/L (0.5-2.2)
[2024-09-13 22:03] VITALS: BP 132/91; PULSE 87; O2SAT 96
[2024-09-13 22:10] LABS: Reflex Lactate Order REFLEX LACTIC ORDERD
--- NOTE | 2024-09-14 07:59 | DCPLANNER ---
faxed referral packet to [facility]
== END 2024-09-13 21:59 | disposition home or self-care (01) ==
PROVIDERS: Emergency Provider Nurse Practitioner Family; PCP Family Medicine
DX: N23 Unspecified renal colic (principal); Z87.891 Personal history of nicotine dependence; I10 Essential (primary) hypertension; E11.9 Type 2 diabetes mellitus without complications
CPT/HCPCS: 36415; 74176; 80053; 81001; 81025; 83605; 83690; 85025; 99284

== ENCOUNTER 2025-01-30 22:05 | Emergency (ER) | payer BC, OTHER, SELFPAY ==
[2025-01-30 22:19] VITALS: BP 129/88; PULSE 88; RESP 16; TEMP 36.7; O2SAT 97
[2025-01-30 23:24] VITALS: BP 138/95; PULSE 90; O2SAT 99
[2025-01-30 23:26] LABS: Basophils % 0.3 %; Eosinophils # 0.1 10^3/uL (0.0-0.8); Eosinophils % 1.6 %; Lymphocytes # 2.1 10^3/uL (0.8-4.8); Lymphocytes % 26.5 %; Mean Corpuscular HGB Conc 32.6 g/dL (30-55); Mean Corpuscular Hemoglobin 28.2 pg (27-33); Mean Corpuscular Volume 86.5 fl (85-98); Mean Platelet Volume 8.1 fL (7.4-10.4); Monocytes # 0.5 10^3/uL (0.2-0.9); Monocytes % 5.9 %; Neutrophils # 5.21 10^3/uL (1.8-7.7); Neutrophils % 65.2 %; Nucleated Red Blood Cells % 0 %; Platelet Count 299 10^3/cmm (157-399); Red Blood Count 4.97 10^6/uL (3.85-5.65); Red Cell Distribution Width 12.8 % (12.1-15.1); White Blood Count 7.99 10^3/uL (3.29-11.43)
[2025-01-30 23:29] LABS: Bilirubin Urine Negative (Negative); Blood Urine Negative (Negative); Glucose Urine UA Negative (Normal); Ketones Urine Negative (Negative); Leukocyte Esterase Urine Negative (Negative); Nitrate Urine Negative (Negative); Protein Urine 1+ (Negative); Specific Gravity, Urine 1.017 (1.005-1.030); Urine Appearance Turbid (CLEAR); Urine Color Yellow (Yellow); Urobilinogen Urine 0.2 mg/dL (Negative)
--- NOTE | 2025-01-30 23:30 | CTR_ITS ---
PROCEDURE INFORMATION: Exam: CT Abdomen And Pelvis With Contrast Exam date and time: 01/30/2025 11:40 PM Age: 39 years old Clinical indication: Abdominal pain; Flank; Right; Prior surgery; Surgery date: 6+ months; Surgery type: Gb, tubal, hyster; Additional info: Right-sided abdominal pain times couple months TECHNIQUE: Imaging protocol: Computed tomography of the abdomen and pelvis with contrast. Radiation optimization: All CT scans at this facility use at least one of these dose optimization techniques: automated exposure control; mA and/or kV adjustment per patient size (includes targeted exams where dose is matched to clinical indication); or iterative reconstruction. Contrast material: OMNIPAQUE 350; Contrast volume: 100 ml; Contrast route: INTRAVENOUS (IV); COMPARISON: CT kidney stone [id number] 09/13/2024 8:28 PM RADIATION DOSE METRICS: Total DLP (mGy-cm): 1200.6 FINDINGS: Liver: There is hepatomegaly. There is a diffuse decrease in hepatic parenchymal density, consistent with fatty infiltration. Gallbladder and biliary ducts: There has been a cholecystectomy. Pancreas: Normal. No ductal dilation. Spleen: Normal. No splenomegaly. Adrenal glands: Stable bilateral adrenal adenomas measuring up to 2 cm on the right side. Kidneys and ureters: Normal. No hydronephrosis. Stomach and bowel: There is mildly excessive colonic stool content. Appendix: No evidence of appendicitis. Intraperitoneal space: Unremarkable. No free air. No significant fluid collection. Vasculature: There are numerous benign phleboliths in the pelvis. Lymph nodes: Unremarkable. No enlarged lymph nodes. Urinary bladder: Unremarkable as visualized. Reproductive: Unremarkable as visualized. Bones/joints: Unremarkable. No acute fracture. Soft tissues: Unremarkable. CT/CT abdomen pelvis w con* [id number] IMPRESSION: No acute intra-abdominal process.
--- NOTE | 2025-01-30 23:31 | W.ED.ABDPA2 ---
HPI - Abdominal Pain General: Chief Complaint: Abdominal Pain Stated Complaint: R kidney Pain Possible Kidney Stone Time Seen by Provider: 01/30/25 23:08 History of Present Illness: Patient presents to the ER with complaints of right upper quadrant abdominal pain rating down to the groin off and on for the last couple months. Sharp and stabbing when it occurs rates it a 4 out of 10. Patient says she been having this for a while but she thought she felt a mass in this area so her primary care doctor arranged for her to have a contrasted CT scan of the abdomen pelvis in [place] tomorrow but she preferred to have it here. Patient denies any nausea vomiting diarrhea. Related Data Date of Last Menstrual Period: 01/11/25 Home Medications ?Medication ?Instructions ?Recorded ?Confirmed hydrochlorothiazide 25 mg tablet 25 mg PO DAILY 01/31/20 05/28/24 escitalopram oxalate 10 mg tablet 10 mg PO DAILY 10/21/23 05/28/24 meloxicam 15 mg tablet 15 mg PO DAILY 02/20/24 05/28/24 Previous Rx's ?Medication ?Instructions ?Recorded methylprednisolone 4 mg tablets in See Rx Instructions PO PER PKG DIR 05/28/24 a dose pack (Medrol (Marco Antonio)) #21 ea Allergies Allergy/AdvReac Type Severity Reaction Status Date / Time lisinopril Allergy ADR-Cough Verified 01/30/25 22:25 Review of Systems General: Reports: 10 or more systems reviewed and unremarkable except in HPI and below PFSH ED PFSH: Medical History Anxiety Arthritis Hypertension GERD (gastroesophageal reflux disease) Diabetes pre-diabetes Surgical History Status post laparoscopic cholecystectomy (07/08/21) H/O section (~2005) 2006 Patel History of salpingectomy (~2018) Bilateral--- sterilization Hx of colonoscopy 2009 polyps removed Family History Grandmother Diabetes Chronic kidney disease (CKD) Father Diabetes Hypertension Bleeding disorder Mother Lung disease Denies family history of Cancer Stroke Social History Smoking and tobacco/nicotine status: former use of tobacco/nicotine Alcohol intake: never Substance/Drug Use: never Female Reproductive History: Date of last menstrual period: 01/11/25 Physical Exam Const: COMMON NORMALS: no acute distress, average body habitus, patient oriented x3, no limitations, healthy appearing, alert and well nourished HENMT: COMMON NORMALS: normocephalic, atraumatic, hearing grossly normal bilaterally, external ears normal, Normal external nose present, moist oral mucous membranes and oropharynx normal HEAD & SCALP: normocephalic and atraumatic NOSE: Normal external nose present EXTERNAL EAR: Yes external ears normal Neck/C-Spine: COMMON NORMALS: no JVD Chest: COMMONS NORMALS: normal inspection of the chest and normal palpation of entire chest wall Resp: COMMON NORMALS: normal respiratory effort, No retractions, No use of accessory muscles and clear to auscultation bilaterally AUSCULTATION: clear to auscultation bilaterally Cardio: COMMON NORMALS: no JVD, regular rate, regular rhythm, S1 normal heart sound present, S2 normal heart sound present, No gallops present (Cardio), No clicks present (Cardio), No murmurs present (Cardio) and No rub (Cardio) RATE: regular rate RHYTHM: regular rhythm HEART SOUNDS: S1 normal heart sound present and S2 normal heart sound present GI: COMMON NORMALS: Normal to inspection, nondistended, normoactive bowel sounds present, Soft to palpation, No hepatosplenomegaly present and no masses; negative for non-tender (Tenderness to palpate right side of abdomen) PALPATION: Yes Soft to palpation and Yes No hepatosplenomegaly present Neuro: COMMON NORMALS: patient oriented x3 SENSORIUM/ORIENTATION: Yes alert Course Vital Signs: Vital signs: Vital Signs Temperature 98.0 F 01/30/25 22:19 Pulse Rate 86 01/31/25 01:31 Respiratory Rate 16 01/30/25 22:19 Blood Pressure 123/89 01/31/25 01:31 Pulse Oximetry 97 01/31/25 01:31 Oxygen Delivery Me thod Room Air 01/30/25 22:19 MDM - Abdominal Pain Medical Decision Making Lab work was reviewed as well as contrasted CT scan of the abdomen pelvis all of which was essentially benign. These results were discussed with the patient. Patient will be discharged home to follow-up with her PCP for further evaluation testing. Medical Records I reviewed the patient's medical records. Lab Data I reviewed the patient's lab results. 01/30/25 23:20 01/30/25 23:20 Labs/Radiology: Radiology Impressions Abdomen/Pelvis CT 01/30/25 23:30 IMPRESSION: No acute intra-abdominal process. Laboratory Results WBC 7.99 10^3/uL (3.29-11.43) 01/30/25 23:20 RBC 4.97 10^6/uL (3.85-5.65) 01/30/25 23:20 Hgb 14.00 g/dL (11.27-16.99) 01/30/25 23:20 Hct 43.0 % (36-47) 01/30/25 23:20 MCV 86.5 fl (85-98) 01/30/25 23:20 MCH 28.2 pg (27-33) 01/30/25 23:20 MCHC 32.6 g/dL (30-55) 01/30/25 23:20 RDW 12.8 % (12.1-15.1) 01/30/25 23:20 Plt Count 299 10^3/cmm (157-399) 01/30/25 23:20 MPV 8.1 fL (7.4-10.4) 01/30/25 23:20 Neut % (Auto) 65.2 % 01/30/25 23:20 Lymph % (Auto) 26.5 % 01/30/25 23:20 [place] % (Auto) 5.9 % 01/30/25 23:20 Eos % (Auto) 1.6 % 01/30/25 23:20 Baso % (Auto) 0.3 % 01/30/25 23:20 Neut # (Auto) 5.21 10^3/uL (1.8-7.7) 01/30/25 23:20 Lymph # (Auto) 2.1 10^3/uL (0.8-4.8) 01/30/25 23:20 [place] # (Auto) 0.5 10^3/uL (0.2-0.9) 01/30/25 23:20 Eos # (Auto) 0.1 10^3/uL (0.0-0.8) 01/30/25 23:20 Baso # (Auto) 0.0 10^3/uL (0.0-0.1) 01/30/25 23:20 Nucleated RBC % (auto) 0 % 01/30/25 23:20 Nucleated RBCs # 0.0 /100WBC 01/30/25 23:20 Sodium 139 mmol/L (136-145) 01/30/25 23:20 Potassium 3.8 mmol/L (3.5-5.1) 01/30/25 23:20 Chloride 101 mmol/L (98-107) 01/30/25 23:20 Carbon Dioxide 26 mmol/L (22-29) 01/30/25 23:20 Anion Gap 15.8 (5-19) 01/30/25 23:20 BUN 16 mg/dL (6-20) 01/30/25 23:20 Creatinine 0.7 mg/dL (0.5-0.9) 01/30/25 23:20 GFR Calculation 93.2 mL/min (90-130) 01/30/25 23:20 Glucose 108 mg/dL (65-115) 01/30/25 23:20 Calculated Osmolality 290 mOsm/kg (285-295) 01/30/25 23:20 Calcium 10.3 mg/dL (8.5-10.5) 01/30/25 23:20 Total Bilirubin 0.2 mg/dL (0.15-1.2) 01/30/25 23:20 AST 30 U/L (0-32) 01/30/25 23:20 ALT 46 U/L (0-33) H 01/30/25 23:20 Alkaline Phosphatase 72 U/L (35-105) 01/30/25 23:20 Total Protein 7.2 g/dL (6.6-8.7) 01/30/25 23:20 Albumin 4.2 g/dL (3.5-5.2) 01/30/25 23:20 Globulin 3.0 g/dL (1.3-4.6) 01/30/25 23:20 Lipase 51 U/L (13-60) 01/30/25 23:20 Urine Color Yellow (Yellow) 01/30/25 23:24 Urine Appearance Turbid (CLEAR) A 01/30/25 23:24 Urine pH 7.0 (5-7) 01/30/25 23:24 Ur Specific [place] 1.017 (1.005-1.030) 01/30/25 23:24 Urine Protein 1+ (Negative) A 01/30/25 23:24 Urine Glucose (UA) Negative (Normal) 01/30/25 23:24 Urine Ketones Negative (Negative) 01/30/25 23:24 Urine Blood Negative (Negative) 01/30/25 23:24 Urine Nitrate Negative (Negative) 01/30/25 23:24 Urine Bilirubin Negative (Negative) 01/30/25 23:24 Urine Urobilinogen 0.2 mg/dL (Negative) 01/30/25 23:24 Ur Leukocyte Esterase Negative (Negative) 01/30/25 23:24 Urine RBC 0-4 /hpf (0-2) H 01/30/25 23:24 Urine WBC 0-4 /hpf (0-5) H 01/30/25 23:24 Ur Squamous Epith Cells 5-10 /hpf (0-5) H 01/30/25 23:24 Amorphous Sediment 3+ /hpf 01/30/25 23:24 Urine Bacteria Trace /hpf (NONE) 01/30/25 23:24 All radiology interpretation(s) finalized by discharge Discharge Plan Discharge Patient Disposition: Home Clinical Impression: Abdominal pain Qualifiers: Abdominal location: unspecified location Qualified Code(s): R10.9 - Unspecified abdominal pain Condition: Stable Prescriptions: No Action hydrochlorothiazide 25 mg tablet 25 mg PO DAILY meloxicam 15 mg tablet 15 mg PO DAILY methylprednisolone [Medrol (Marco Antonio)] 4 mg tablets,dose pack See Rx Instructions PO PER PKG DIR Qty: 21 0RF Rx Instructions: PO PER PKG DIR escitalopram oxalate 10 mg tablet 10 mg PO DAILY Discharge Orders: Discharge ED (Routine); Ordered 01/31/25 Ordered By: David Moses Referrals: Bruce Euceda MD [Primary Care Provider] - 1 week Patient Instructions: Abdominal Pain (ED) Activity Restrictions/Additional Instructions: Your evaluation through the ER that included blood work, urinalysis and contrasted CT scan of the abdomen pelvis did not show any specific findings that would cause your symptomatology. Please follow back up with your family practice physician within the next 7 days for further evaluation treatment. Thank you for choosing [facility] for your healthcare needs today. Please realize that you were seen in the emergency department and that we are providing you with an emergency medical screening exam and this may not be a complete and all exclusive of all testing and/or medical workup we may need to determine your element or severity of your illness. It is very important that you follow-up as instructed with your primary care provider or specialist for the additional evaluation and to discuss your medical treatment plan. You may return to the emergency department should you have concerns or if your condition changes or worsens in any way. Print Language: Pashto Coding Level of Care Code ED Ict Help Desk Technician for Asif You
[2025-01-30 23:50] LABS: Alanine Aminotransferase 46 U/L (0-33); Albumin Level 4.2 g/dL (3.5-5.2); Alkaline Phosphatase 72 U/L (35-105); Anion Gap 15.8 (5-19); Aspartate Amino Transferase 30 U/L (0-32); Blood Urea Nitrogen 16 mg/dL (6-20); Calcium 10.3 mg/dL (8.5-10.5); Carbon Dioxide 26 mmol/L (22-29); Chloride 101 mmol/L (98-107); Creatinine Clr Calc Pharmacy 141.2696; Glomerular Filtration Rate 93.2 mL/min (90-130); Glucose 108 mg/dL (65-115); Lipase 51 U/L (13-60); Osmolality Calculated 290 mOsm/kg (285-295); Potassium 3.8 mmol/L (3.5-5.1); Sodium 139 mmol/L (136-145); Total Bilirubin 0.2 mg/dL (0.15-1.2); Total Protein 7.2 g/dL (6.6-8.7)
[2025-01-30 23:55] LABS: Add Urine Microscopic? YES; RBC Urine 0-4 /hpf (0-2); UA Manual Slide Review YES; UA Slide Review UA Slide Review Perf; WBC Urine 0-4 /hpf (0-5)
[2025-01-30 23:56] LABS: Amorphous Sediment Urine 3+ /hpf; Bacteria Urine TRACE /hpf
[2025-01-31] VITALS: BP 115/82; PULSE 88; O2SAT 97
[2025-01-31 01:31] VITALS: BP 123/89; PULSE 86; O2SAT 97
[2025-01-31 01:52] VITALS: BP 120/86; PULSE 84; O2SAT 98
== END 2025-01-31 01:50 | disposition home or self-care (01) ==
PROVIDERS: Emergency Provider Emergency Medicine; PCP Family Medicine
DX: R10.9 Unspecified abdominal pain (principal); Z87.891 Personal history of nicotine dependence; E11.8 Type 2 diabetes mellitus with unspecified complications; I10 Essential (primary) hypertension
CPT/HCPCS: 36415; 74177; 80053; 81001; 83690; 85025; 99284

== ENCOUNTER 2025-04-12 07:56 | Outpatient (CLI) | payer BC, OTHER, SELFPAY ==
[2025-04-12 08:54] LABS: Alanine Aminotransferase 27 U/L (0-33); Albumin Level 4.1 g/dL (3.5-5.2); Alkaline Phosphatase 80 U/L (35-105); Anion Gap 15.1 (5-19); Aspartate Amino Transferase 15 U/L (0-32); Blood Urea Nitrogen 13 mg/dL (6-20); Calcium 9.2 mg/dL (8.5-10.5); Carbon Dioxide 26 mmol/L (22-29); Chloride 100 mmol/L (98-107); Free T4 Free Thyroxine 1.15 ng/dL (0.82-1.77); Globulin 2.8 g/dL (1.3-4.6); Glomerular Filtration Rate 93.2 mL/min (90-130); Glucose 115 mg/dL (65-115); Osmolality Calculated 285 mOsm/kg (285-295); Potassium 4.1 mmol/L (3.5-5.1); Sodium 137 mmol/L (136-145); Thyroid Stimulating Hormone 2.03 uIU/mL (0.27-4.20); Total Bilirubin 0.2 mg/dL (0.15-1.2); Total Protein 6.9 g/dL (6.6-8.7)
== END 2025-04-12 07:57 | disposition home or self-care (01) ==
LOC: LAB 07:58
PROVIDERS: PCP Family Medicine; Visit Provider Internal Medicine
DX: D35.01 Benign neoplasm of right adrenal gland (principal); D35.02 Benign neoplasm of left adrenal gland; E27.9 Disorder of adrenal gland, unspecified
CPT/HCPCS: 36415; 80053; 82088; 84244; 84439; 84443

== ENCOUNTER 2025-04-14 14:29 | Outpatient (CLI) | payer BC, OTHER, SELFPAY ==
[2025-04-14 14:49] LABS: Total Volume Urine 2100 ml
[2025-04-14 15:20] LABS: Urine Creatinine 76 mg/dL (28-217)
== END 2025-04-14 14:30 | disposition home or self-care (01) ==
PROVIDERS: PCP Family Medicine; Visit Provider Internal Medicine
DX: D35.01 Benign neoplasm of right adrenal gland (principal); D35.02 Benign neoplasm of left adrenal gland; E27.9 Disorder of adrenal gland, unspecified
CPT/HCPCS: 82384; 82530; 82570; 83835

== ENCOUNTER 2025-05-12 18:17 | Outpatient (CLI) | payer OTHER, SELFPAY ==
[2025-05-12 18:46] LABS: Total Volume Urine 3500 ml
[2025-05-12 18:52] LABS: Urine Creatinine 43 mg/dL (28-217)
== END 2025-05-12 18:18 | disposition home or self-care (01) ==
PROVIDERS: PCP Family Medicine; Visit Provider Internal Medicine
DX: D35.01 Benign neoplasm of right adrenal gland (principal); D35.02 Benign neoplasm of left adrenal gland; R10.30 Lower abdominal pain, unspecified
CPT/HCPCS: 82384; 82530; 82570; 83835

== ENCOUNTER 2025-10-15 07:09 | Outpatient (CLI) | payer OTHER, SELFPAY ==
--- NOTE | 2025-10-15 07:19 | USCV_ITS ---
Montserrat Odom Age: 40 Gender: F : 1985 Exam Date: 10/15/2025 07:33 Ordering Phys: Bruce Euceda MD Technologist: Exam Location: [facility] [place] Indication: cp sob hx mi BP: 134 / 84 HR: 77 Rhythm: Sinus Technical Quality: Adequate MEASUREMENTS (Male / Female) Normal Values 2D ECHO LV Diastolic Diameter PLAX 4.5 cm 4.2 - 5.9 / 3.9 - 5.3 cm IVS Diastolic Thickness 1.3 cm 0.6 - 1.0 / 0.6 - 0.9 cm IVS Systolic Thickness 1.7 cm LVPW Diastolic Thickness 1.3 cm 0.6 - 1.0 / 0.6 - 0.9 cm LVPW Systolic Thickness 1.6 cm LVOT Diameter 2.0 cm LV Ejection Fraction 2D Teich 66.7 % LV Ejection Fraction MOD 4C 60.7 % LV Ejection Fraction MOD 2C 60.6 % LV Ejection Fraction 2C AL 60.7 % LA Diameter 3.4 cm RA Systolic Volume 4C AL 32.7 ml RA Systolic Volume 4C MOD 32.8 ml Aorta at Sinotubular Diameter 2.5 cm IVC Diameter 1.2 cm M-MODE LA Ao Ratio MM 1.5 AV Cusp Separation MM 2.2 cm DOPPLER AV Peak Velocity 135.0 cm/s LVOT Peak Velocity 82.0 cm/s AV Area Cont Eq vti 2.0 cm squared AV Area Cont Eq pk 1.9 cm squared MV Peak Velocity 109.0 cm/s MV Area PHT 4.9 cm squared Mitral E to A Ratio 1.0 TV Peak Velocity 170.0 cm/s TR Peak Velocity 179.0 cm/s TR Peak Gradient 12.8 mmHg TV Peak E Velocity 106.0 cm/s PV Peak Velocity 114.0 cm/s FINDINGS Left Ventricle Normal left ventricular size and systolic function, EF 60%.no regional wall motion abnormalities. Mild left ventricular hypertrophy. Right Ventricle Normal right ventricular size and systolic function. Right Atrium Normal right atrial size. Left Atrium Normal left atrial size. IA Septum Appears to be intact Mitral Valve No gross abnormalities noted Aortic Valve No gross abnormalities noted Tricuspid Valve Estimated pulmonary artery peak systolic pressure possibly within normal limits.Trace tricuspid valve regurgitation. Pulmonic Valve Pulmonic valve not well visualized. Pericardium No pericardial effusion. Aorta Normal aortic annulus size. IVC Normal inferior vena cava. CONCLUSIONS Normal left ventricular size and systolic function, EF 60%.no regional wall motion abnormalities. Mild left ventricular hypertrophy. Trace tricuspid valve regurgitation. Estimated pulmonary artery peak systolic pressure possibly within normal limits. There is no pericardial effusion. There are no intracardiac masses. No similar previous studies are available for comparison Dr Jourdan Dumas MD [facility] (Electronically Signed) Final Date: 17 October 2025 09:45 S
== END 2025-10-15 07:10 | disposition home or self-care (01) ==
LOC: RAD 07:10
PROVIDERS: PCP Family Medicine; Visit Provider Family Medicine
DX: R06.02 Shortness of breath (principal); I51.7 Cardiomegaly; I36.1 Nonrheumatic tricuspid (valve) insufficiency
CPT/HCPCS: 93306